=== PATIENT | female | born 1960 | race Caucasian/White ===

== ENCOUNTER → 2019-12-13 10:49 | Outpatient (BNVA) | payer MEDICARE, MEDICAID, SELFPAY | PROVIDERS: Family Provider Family Medicine; Visit Provider Nurse Practitioner Psychiatric/Mental Health | DX: F33.3 Major depressive disorder, recurrent, severe with psychotic symptoms (principal); F41.1 Generalized anxiety disorder; F17.210 Nicotine dependence, cigarettes, uncomplicated | CPT/HCPCS: 99213 ==

== ENCOUNTER → 2020-04-09 07:41 | Outpatient (BNVA) | payer MEDICARE, MEDICAID, SELFPAY | PROVIDERS: Family Provider Family Medicine; Visit Provider Nurse Practitioner Psychiatric/Mental Health | DX: F33.3 Major depressive disorder, recurrent, severe with psychotic symptoms (principal); F41.1 Generalized anxiety disorder; F17.210 Nicotine dependence, cigarettes, uncomplicated | CPT/HCPCS: 99213 ==

== ENCOUNTER 2020-07-07 12:22 | Outpatient (RCR) | payer MEDICARE, MEDICAID, SELFPAY | END 2020-07-08 23:59 | disposition home or self-care (01) | LOC: SPT 12:22 | PROVIDERS: PCP Family Medicine; Referring Provider Internal Medicine; Visit Provider Internal Medicine | DX: M06.9 Rheumatoid arthritis, unspecified (principal); Z79.899 Other long term (current) drug therapy; M17.0 Bilateral primary osteoarthritis of knee | CPT/HCPCS: 97162 ==

== ENCOUNTER → 2020-08-11 07:50 | Outpatient (BNVA) | payer MEDICARE, MEDICAID, SELFPAY | PROVIDERS: PCP Family Medicine; Visit Provider Nurse Practitioner Psychiatric/Mental Health | DX: F33.3 Major depressive disorder, recurrent, severe with psychotic symptoms (principal); F41.1 Generalized anxiety disorder | CPT/HCPCS: 99213 ==

== ENCOUNTER → 2020-10-12 13:50 | Outpatient (BNVA) | payer MEDICARE, MEDICAID, SELFPAY | PROVIDERS: PCP Family Medicine; Visit Provider Internal Medicine | DX: M05.9 Rheumatoid arthritis with rheumatoid factor, unspecified (principal); M17.10 Unilateral primary osteoarthritis, unspecified knee; F17.210 Nicotine dependence, cigarettes, uncomplicated | CPT/HCPCS: 99203; 99204 ==

== ENCOUNTER → 2020-10-26 15:08 | Outpatient (BNVA) | payer MEDICARE, MEDICAID, SELFPAY | PROVIDERS: PCP Family Medicine; Visit Provider Internal Medicine | DX: M05.9 Rheumatoid arthritis with rheumatoid factor, unspecified (principal); M17.0 Bilateral primary osteoarthritis of knee; F17.210 Nicotine dependence, cigarettes, uncomplicated | CPT/HCPCS: 20610; 99214 ==

== ENCOUNTER → 2020-11-30 10:50 | Outpatient (BNVA) | payer MEDICARE, MEDICAID, SELFPAY | PROVIDERS: PCP Family Medicine; Visit Provider Internal Medicine | DX: Z79.899 Other long term (current) drug therapy (principal) | CPT/HCPCS: 36415 ==

== ENCOUNTER → 2020-12-10 08:37 | Outpatient (BNVA) | payer MEDICARE, MEDICAID, SELFPAY | PROVIDERS: PCP Family Medicine; Visit Provider Internal Medicine | DX: M05.9 Rheumatoid arthritis with rheumatoid factor, unspecified (principal); Z79.899 Other long term (current) drug therapy; M17.10 Unilateral primary osteoarthritis, unspecified knee; F17.210 Nicotine dependence, cigarettes, uncomplicated | CPT/HCPCS: 36415; 80053; 85025; 85651; 86140; 99214 ==

== ENCOUNTER → 2020-12-11 07:53 | Outpatient (BNVA) | payer MEDICARE, MEDICAID, SELFPAY | PROVIDERS: PCP Family Medicine; Visit Provider Nurse Practitioner Psychiatric/Mental Health | DX: F33.3 Major depressive disorder, recurrent, severe with psychotic symptoms (principal); F41.1 Generalized anxiety disorder | CPT/HCPCS: 99213 ==

== ENCOUNTER → 2021-03-09 12:47 | Outpatient (BNVA) | payer MEDICARE, MEDICAID, SELFPAY | PROVIDERS: PCP Family Medicine; Visit Provider Internal Medicine | DX: M05.9 Rheumatoid arthritis with rheumatoid factor, unspecified (principal); Z79.899 Other long term (current) drug therapy; F17.210 Nicotine dependence, cigarettes, uncomplicated | CPT/HCPCS: 36415; 80053; 85025; 85651; 86140; 99213; 99214 ==

== ENCOUNTER → 2021-04-08 07:17 | Outpatient (BNVA) | payer MEDICARE, MEDICAID, SELFPAY | PROVIDERS: PCP Family Medicine; Visit Provider Nurse Practitioner Psychiatric/Mental Health | DX: F33.3 Major depressive disorder, recurrent, severe with psychotic symptoms (principal); F41.1 Generalized anxiety disorder | CPT/HCPCS: 99214 ==

== ENCOUNTER → 2021-06-01 10:09 | Outpatient (BNVA) | payer MEDICARE, MEDICAID, SELFPAY | PROVIDERS: PCP Family Medicine; Visit Provider Internal Medicine | DX: M05.9 Rheumatoid arthritis with rheumatoid factor, unspecified (principal); M17.10 Unilateral primary osteoarthritis, unspecified knee; Z79.899 Other long term (current) drug therapy | CPT/HCPCS: 36415; 80053; 85025; 85651; 86140 ==

== ENCOUNTER → 2021-06-15 09:02 | Outpatient (BNVA) | payer MEDICARE, MEDICAID, SELFPAY | PROVIDERS: PCP Family Medicine; Visit Provider Internal Medicine | DX: M05.9 Rheumatoid arthritis with rheumatoid factor, unspecified (principal); Z79.899 Other long term (current) drug therapy; F17.200 Nicotine dependence, unspecified, uncomplicated | CPT/HCPCS: 99213; 99214 ==

== ENCOUNTER → 2021-08-03 09:46 | Outpatient (BNVA) | payer MEDICARE, MEDICAID, SELFPAY | PROVIDERS: PCP Family Medicine; Visit Provider Internal Medicine | DX: Z79.899 Other long term (current) drug therapy (principal); M05.9 Rheumatoid arthritis with rheumatoid factor, unspecified | CPT/HCPCS: 36415; 80053 ==

== ENCOUNTER → 2021-08-04 16:50 | Outpatient (BNVA) | payer MEDICARE, MEDICAID, SELFPAY | PROVIDERS: PCP Family Medicine; Visit Provider Internal Medicine | DX: Z79.899 Other long term (current) drug therapy (principal) | CPT/HCPCS: 80053 ==

== ENCOUNTER → 2021-08-05 07:53 | Outpatient (BNVA) | payer MEDICARE, MEDICAID, SELFPAY | PROVIDERS: PCP Family Medicine; Visit Provider Nurse Practitioner Psychiatric/Mental Health | DX: F33.3 Major depressive disorder, recurrent, severe with psychotic symptoms (principal); F41.1 Generalized anxiety disorder; Z79.899 Other long term (current) drug therapy | CPT/HCPCS: 99214 ==

== ENCOUNTER → 2021-08-06 09:15 | Outpatient (BNVA) | payer MEDICARE, MEDICAID, SELFPAY | PROVIDERS: PCP Family Medicine; Visit Provider Nurse Practitioner Psychiatric/Mental Health | DX: Z79.899 Other long term (current) drug therapy (principal) | CPT/HCPCS: 80061; 83036 ==

== ENCOUNTER 2021-09-06 13:45 | Outpatient (CLI) | payer MEDICARE, MEDICAID, SELFPAY ==
--- NOTE | 2021-09-06 13:50 | MM_ITS ---
WS: [id number] BILATERAL DIGITAL SCREENING MAMMOGRAPHY WITH CAD CLINICAL INFORMATION: SCREENING HISTORY: Screening mammogram. No current complaints. COMPARISON: TECHNIQUE: Bilateral CC and MLO views. FINDINGS: Scattered fibroglandular densities bilaterally. No suspicious focal mass, asymmetry, calcifications, or architectural distortion. No evidence of malignancy. MM/[place] [id number] IMPRESSION: BI-RADS: 1-Negative FOLLOW UP: 1 Year Follow-up Recommend return to annual screening mammography.
== END 2021-09-06 13:46 | disposition home or self-care (01) ==
LOC: RADSHAW 13:47
PROVIDERS: PCP Family Medicine; Visit Provider Family Medicine
DX: Z12.31 Encounter for screening mammogram for malignant neoplasm of breast (principal)
CPT/HCPCS: 77067

== ENCOUNTER → 2021-09-13 09:02 | Outpatient (BNVA) | payer MEDICARE, MEDICAID, SELFPAY | PROVIDERS: PCP Family Medicine; Visit Provider Internal Medicine | DX: M05.9 Rheumatoid arthritis with rheumatoid factor, unspecified (principal); M17.11 Unilateral primary osteoarthritis, right knee; M25.572 Pain in left ankle and joints of left foot; Z79.899 Other long term (current) drug therapy; Z87.891 Personal history of nicotine dependence; M25.50 Pain in unspecified joint | CPT/HCPCS: 73600; 73620; 99214 ==

== ENCOUNTER 2021-09-13 10:16 | Outpatient (CLI) | payer MEDICARE, MEDICAID, SELFPAY ==
--- NOTE | 2021-09-13 10:27 | XR_ITS ---
WS: [id number] ANKLE LEFT TECHNIQUE: 2 views of the left ankle CLINICAL INFORMATION: Z79.899 - Other longterm (current) drug therapy COMPARISON: None. FINDINGS: Osteopenia. Moderate soft tissue edema about the left ankle. Normal medial and lateral malleolus. Nor mal talar dome. No acute fractures. XR/XR ankle LT 2V [id number] IMPRESSION: Moderate diffuse soft tissue edema. No visualized fractures.
--- NOTE | 2021-09-13 10:27 | XR_ITS ---
WS: [email or web address] FOOT LEFT TECHNIQUE: 2 views of the left foot CLINICAL INFORMATION: M25.50 - Pain in unspecified joint COMPARISON: None. FINDINGS: Osteopenia. Mild hallux valgus. Degenerative narrowing at the first MTP. Mild bunion deformity. Katie l metatarsals. No acute fractures. Hypertrophic spurring along the distal talus. Soft tissue edema dorsal ankle. XR/XR foot LT 2V [id number] IMPRESSION: Osteopenia. No acute fractures.
== END 2021-09-13 10:17 | disposition home or self-care (01) ==
PROVIDERS: PCP Family Medicine; Visit Provider Internal Medicine
DX: Z79.899 Other long term (current) drug therapy (principal); M25.50 Pain in unspecified joint
CPT/HCPCS: 73600; 73620

== ENCOUNTER 2021-11-18 11:04 | Outpatient (CLI) | payer MEDICARE, MEDICAID, SELFPAY ==
[2021-11-18 11:57] LABS: Basophils % 0.3 %; Eosinophils # 0.1 10^3/uL (0.0-0.8); Eosinophils % 0.8 %; Hematocrit 40.9 % (37.0-47.0); Hemoglobin 12.7 g/dL (11.5-15.3); Lymphocytes % 8.3 %; Mean Corpuscular HGB Conc 31.1 g/dL (30.0-36.0); Mean Corpuscular Volume 96.5 fl (81-99); Mean Platelet Volume 9.2 fL (7.4-10.4); Monocytes # 0.5 10^3/uL (0.2-0.9); Monocytes % 3.9 %; Neutrophils # 10.14 10^3/uL (1.8-7.7); Neutrophils % 86.1 %; Nucleated Red Blood Cells % 0 %; Platelet Count 303 10^3/cmm (130-400); Red Blood Count 4.24 10^6/uL (4.1-5.3); Red Cell Distribution Width 15.1 % (12.1-15.1); White Blood Count 11.8 10^3/uL (4.0-10.0)
[2021-11-18 12:04] LABS: Erythrocyte Sedimentation Rate 112 mm/hr (0-15)
[2021-11-18 12:18] LABS: Alanine Aminotransferase 10 U/L (0-33); Albumin Level 3.5 g/dL (3.5-5.2); Alkaline Phosphatase 101 IU/L (35-105); Anion Gap 16.7 (5-19); Aspartate Amino Transferase 14 U/L (0-32); Blood Urea Nitrogen 10 mg/dL (6-20); C Reactive Protein 204.3 mg/L (0.0-4.9); Calcium 9.9 mg/dL (8.5-10.5); Carbon Dioxide 22 mmol/L (22-29); Chloride 101 mmol/L (98-107); Globulin 4.3 g/dL (1.3-4.6); Glomerular Filtration Rate 126.7 mL/min (90-130); Glucose 148 mg/dL (65-115); Osmolality Calculated 284 mOsm/kg (285-295); Potassium 3.7 mmol/L (3.5-5.1); Sodium 136 mmol/L (136-145); Total Bilirubin 0.4 mg/dL (0.15-1.2); Total Protein 7.8 g/dL (6.6-8.7)
== END 2021-11-18 11:05 | disposition home or self-care (01) ==
PROVIDERS: PCP Family Medicine; Visit Provider Internal Medicine
DX: M05.9 Rheumatoid arthritis with rheumatoid factor, unspecified (principal); Z79.899 Other long term (current) drug therapy
CPT/HCPCS: 80053; 85025; 85651; 86140

== ENCOUNTER → 2021-11-25 07:16 | Outpatient (BNVA) | payer MEDICARE, MEDICAID, SELFPAY | PROVIDERS: PCP Family Medicine; Visit Provider Nurse Practitioner Psychiatric/Mental Health | DX: F33.3 Major depressive disorder, recurrent, severe with psychotic symptoms (principal); F41.1 Generalized anxiety disorder; Z79.899 Other long term (current) drug therapy | CPT/HCPCS: 99214 ==

== ENCOUNTER 2021-12-14 15:00 | Outpatient (CLI) | payer MEDICARE, MEDICAID, SELFPAY | END 2021-12-14 15:01 | disposition home or self-care (01) | LOC: SPT 12-15 09:01 | PROVIDERS: PCP Family Medicine; Visit Provider Podiatrist Foot & Ankle Surgery | DX: Z46.89 Encounter for fitting and adjustment of other specified devices (principal); M79.673 Pain in unspecified foot; M19.079 Primary osteoarthritis, unspecified ankle and foot; M20.20 Hallux rigidus, unspecified foot; M21.41 Flat foot [pes planus] (acquired), right foot; M21.42 Flat foot [pes planus] (acquired), left foot | CPT/HCPCS: 97760; L3030 ==

== ENCOUNTER → 2021-12-28 10:07 | Outpatient (BNVA) | payer MEDICARE, MEDICAID, SELFPAY | PROVIDERS: PCP Family Medicine; Visit Provider Internal Medicine | DX: M05.9 Rheumatoid arthritis with rheumatoid factor, unspecified (principal); Z79.899 Other long term (current) drug therapy; R79.82 Elevated C-reactive protein (CRP); Z87.891 Personal history of nicotine dependence | CPT/HCPCS: 99214 ==

== ENCOUNTER → 2022-01-31 11:06 | Outpatient (BNVA) | payer MEDICARE, MEDICAID, SELFPAY | PROVIDERS: PCP Family Medicine; Visit Provider Nurse Practitioner Psychiatric/Mental Health | DX: F33.3 Major depressive disorder, recurrent, severe with psychotic symptoms (principal); F41.1 Generalized anxiety disorder; Z79.899 Other long term (current) drug therapy | CPT/HCPCS: 99214 ==

== ENCOUNTER → 2022-02-07 09:59 | Outpatient (BNVA) | payer MEDICARE, MEDICAID, SELFPAY | PROVIDERS: PCP Family Medicine; Visit Provider Podiatrist Foot & Ankle Surgery | DX: M19.079 Primary osteoarthritis, unspecified ankle and foot (principal); M21.41 Flat foot [pes planus] (acquired), right foot; M21.42 Flat foot [pes planus] (acquired), left foot; M20.20 Hallux rigidus, unspecified foot; Z87.891 Personal history of nicotine dependence | CPT/HCPCS: 99213; 99214 ==

== ENCOUNTER 2022-02-28 11:41 | Outpatient (CLI) | payer MEDICARE, MEDICAID, SELFPAY ==
[2022-02-28 12:37] LABS: Basophils # 0.1 10^3/uL (0.0-0.1); Basophils % 0.8 %; Eosinophils # 0.2 10^3/uL (0.0-0.8); Eosinophils % 2.9 %; Hemoglobin 12.8 g/dL (11.5-15.3); Lymphocytes # 1.2 10^3/uL (0.8-4.8); Lymphocytes % 19.7 %; Mean Corpuscular HGB Conc 30.5 g/dL (30.0-36.0); Mean Corpuscular Hemoglobin 29.2 pg (28.0-34.0); Mean Corpuscular Volume 95.7 fl (81-99); Monocytes # 0.4 10^3/uL (0.2-0.9); Monocytes % 6.4 %; Neutrophils % 69.9 %; Nucleated Red Blood Cells % 0 %; Platelet Count 372 10^3/cmm (130-400); Red Blood Count 4.39 10^6/uL (4.1-5.3); Red Cell Distribution Width 15.8 % (12.1-15.1); White Blood Count 6.3 10^3/uL (4.0-10.0)
[2022-02-28 12:40] LABS: Erythrocyte Sedimentation Rate 81 mm/hr (0-15)
[2022-02-28 13:09] LABS: Alanine Aminotransferase 21 U/L (0-33); Albumin Level 3.8 g/dL (3.5-5.2); Alkaline Phosphatase 102 IU/L (35-105); Anion Gap 16.8 (5-19); Aspartate Amino Transferase 25 U/L (0-32); Blood Urea Nitrogen 5 mg/dL (6-20); C Reactive Protein 10.3 mg/L (0.0-4.9); Calcium 9.5 mg/dL (8.5-10.5); Carbon Dioxide 25 mmol/L (22-29); Chloride 103 mmol/L (98-107); Glomerular Filtration Rate 102.3 mL/min (90-130); Glucose 182 mg/dL (65-115); Osmolality Calculated 294 mOsm/kg (285-295); Potassium 3.8 mmol/L (3.5-5.1); Sodium 141 mmol/L (136-145); Total Bilirubin 0.2 mg/dL (0.15-1.2); Total Protein 6.8 g/dL (6.6-8.7)
== END 2022-02-28 11:42 | disposition home or self-care (01) ==
LOC: LAB 11:44
PROVIDERS: PCP Family Medicine; Visit Provider Internal Medicine
DX: M05.9 Rheumatoid arthritis with rheumatoid factor, unspecified (principal); Z79.899 Other long term (current) drug therapy; M17.0 Bilateral primary osteoarthritis of knee
CPT/HCPCS: 80053; 85025; 85651; 86140

== ENCOUNTER → 2022-04-01 10:04 | Outpatient (BNVA) | payer MEDICARE, MEDICAID, SELFPAY | PROVIDERS: PCP Family Medicine; Visit Provider Internal Medicine | DX: M05.9 Rheumatoid arthritis with rheumatoid factor, unspecified (principal); R79.82 Elevated C-reactive protein (CRP); Z79.899 Other long term (current) drug therapy | CPT/HCPCS: 73502; 99214 ==

== ENCOUNTER → 2022-04-18 12:04 | Outpatient (BNVA) | payer MEDICARE, MEDICAID, SELFPAY | PROVIDERS: PCP Family Medicine; Referring Provider Internal Medicine; Visit Provider Nurse Practitioner | DX: R25.1 Tremor, unspecified (principal) | CPT/HCPCS: 84443; 99203 ==

== ENCOUNTER 2022-06-09 14:12 | Outpatient (CLI) | payer MEDICARE, MEDICAID, SELFPAY ==
[2022-06-09 14:45] LABS: Basophils # 0.1 10^3/uL (0.0-0.1); Basophils % 1.1 %; Eosinophils # 0.2 10^3/uL (0.0-0.8); Eosinophils % 4.1 %; Hematocrit 44.7 % (37.0-47.0); Hemoglobin 13.4 g/dL (11.5-15.3); Lymphocytes # 1.6 10^3/uL (0.8-4.8); Lymphocytes % 30.4 %; Mean Corpuscular Hemoglobin 29.4 pg (28.0-34.0); Mean Platelet Volume 9.3 fL (7.4-10.4); Monocytes # 0.4 10^3/uL (0.2-0.9); Monocytes % 7.5 %; Neutrophils # 3.02 10^3/uL (1.8-7.7); Neutrophils % 56.7 %; Nucleated Red Blood Cells % 0 %; Platelet Count 364 10^3/cmm (130-400); Red Blood Count 4.56 10^6/uL (4.1-5.3); Red Cell Distribution Width 14.8 % (12.1-15.1); White Blood Count 5.3 10^3/uL (4.0-10.0)
[2022-06-09 14:47] LABS: Erythrocyte Sedimentation Rate 67 mm/hr (0-15)
[2022-06-09 15:00] LABS: Alanine Aminotransferase 18 U/L (0-33); Albumin Level 3.6 g/dL (3.5-5.2); Alkaline Phosphatase 92 U/L (35-105); Anion Gap 16.7 (5-19); Aspartate Amino Transferase 20 U/L (0-32); Blood Urea Nitrogen 7 mg/dL (6-20); C Reactive Protein 4.3 mg/L (0.0-4.9); Calcium 9.1 mg/dL (8.5-10.5); Carbon Dioxide 26 mmol/L (22-29); Chloride 99 mmol/L (98-107); Creatine Phosphokinase 50 U/L (26-192); Globulin 3.2 g/dL (1.3-4.6); Glomerular Filtration Rate 73.4 mL/min (90-130); Glucose 199 mg/dL (65-115); Osmolality Calculated 290 mOsm/kg (285-295); Potassium 3.7 mmol/L (3.5-5.1); Sodium 138 mmol/L (136-145); Total Bilirubin 0.2 mg/dL (0.15-1.2); Total Protein 6.8 g/dL (6.6-8.7)
== END 2022-06-09 14:13 | disposition home or self-care (01) ==
PROVIDERS: PCP Family Medicine; Visit Provider Internal Medicine
DX: M05.9 Rheumatoid arthritis with rheumatoid factor, unspecified (principal); M17.10 Unilateral primary osteoarthritis, unspecified knee; R79.82 Elevated C-reactive protein (CRP); Z79.899 Other long term (current) drug therapy
CPT/HCPCS: 80053; 82550; 85025; 85651; 86140

== ENCOUNTER → 2022-06-28 14:01 | Outpatient (BNVA) | payer MEDICARE, MEDICAID, SELFPAY | PROVIDERS: PCP Family Medicine; Visit Provider Internal Medicine | DX: M05.9 Rheumatoid arthritis with rheumatoid factor, unspecified (principal); Z71.85 Encounter for immunization safety counseling; Z79.899 Other long term (current) drug therapy | CPT/HCPCS: 99214 ==

== ENCOUNTER → 2022-11-03 15:09 | Outpatient (BNVA) | payer MEDICARE, MEDICAID, SELFPAY | PROVIDERS: PCP Family Medicine; Visit Provider Internal Medicine | DX: M05.9 Rheumatoid arthritis with rheumatoid factor, unspecified (principal); Z79.899 Other long term (current) drug therapy | CPT/HCPCS: 36415; 80053; 82550; 85025; 85651; 86140; 99214 ==

== ENCOUNTER 2022-11-14 12:28 | Outpatient (CLI) | payer MEDICARE, MEDICAID, SELFPAY ==
--- NOTE | 2022-11-14 13:13 | MM_ITS ---
WS: [id number] BILATERAL 3D TOMOSYNTHESIS DIGITAL SCREENING MAMMOGRAM WITH CAD CLINICAL INFORMATION: SCREENING HISTORY: Screening mammogram. No current complaints. COMPARISON: 2020 TECHNIQUE: Bilateral CC and MLO views. FINDINGS: Fatty-replaced breasts bilaterally. No suspicious focal mass, asymmetry, calcifications, or oracle database architect ural distortion. No evidence of malignancy. MM/[place] [id number] IMPRESSION: BI-RADS: 1-Negative FOLLOW UP: 1 Year Follow-up Recommend return to annual screening mammography.
== END 2022-11-14 12:29 | disposition home or self-care (01) ==
LOC: RAD 12:30
PROVIDERS: PCP Family Medicine; Visit Provider Family Medicine
DX: Z12.31 Encounter for screening mammogram for malignant neoplasm of breast (principal)
CPT/HCPCS: 77063; 77067

== ENCOUNTER 2023-01-03 07:16 | Outpatient (CLI) | payer MEDICARE, MEDICAID, SELFPAY ==
[2023-01-03 07:47] LABS: Basophils # 0.1 10^3/uL (0.0-0.1); Basophils % 0.8 %; Eosinophils # 0.3 10^3/uL (0.0-0.8); Eosinophils % 4.6 %; Hematocrit 44.6 % (37.0-47.0); Hemoglobin 13.9 g/dL (11.5-15.3); Lymphocytes # 1.6 10^3/uL (0.8-4.8); Lymphocytes % 24.8 %; Mean Corpuscular HGB Conc 31.2 g/dL (30.0-36.0); Mean Corpuscular Hemoglobin 30.5 pg (28.0-34.0); Mean Platelet Volume 9.5 fL (7.4-10.4); Monocytes # 0.6 10^3/uL (0.2-0.9); Monocytes % 9.6 %; Neutrophils # 3.75 10^3/uL (1.8-7.7); Nucleated Red Blood Cells % 0 %; Platelet Count 312 10^3/cmm (130-400); Red Blood Count 4.55 10^6/uL (4.1-5.3); Red Cell Distribution Width 14.1 % (12.1-15.1); White Blood Count 6.3 10^3/uL (4.0-10.0)
[2023-01-03 08:08] LABS: Alanine Aminotransferase 18 U/L (0-33); Alkaline Phosphatase 93 U/L (35-105); Anion Gap 14.4 (5-19); Aspartate Amino Transferase 25 U/L (0-32); Blood Urea Nitrogen 6 mg/dL (8-23); C Reactive Protein 6.3 mg/L (0.0-4.9); Calcium 8.8 mg/dL (8.5-10.5); Carbon Dioxide 27 mmol/L (22-29); Chloride 103 mmol/L (98-107); Globulin 3.1 g/dL (1.3-4.6); Glucose 111 mg/dL (65-115); Osmolality Calculated 288 mOsm/kg (285-295); Potassium 4.4 mmol/L (3.5-5.1); Sodium 140 mmol/L (136-145); Total Bilirubin 0.3 mg/dL (0.15-1.2); Total Protein 7.1 g/dL (6.6-8.7)
[2023-01-03 08:27] LABS: Erythrocyte Sedimentation Rate 65 mm/hr (0-15)
== END 2023-01-03 07:17 | disposition home or self-care (01) ==
PROVIDERS: PCP Family Medicine; Visit Provider Internal Medicine
DX: M05.9 Rheumatoid arthritis with rheumatoid factor, unspecified (principal); Z79.899 Other long term (current) drug therapy
CPT/HCPCS: 36415; 80053; 85025; 85651; 86140

== ENCOUNTER → 2023-01-17 14:44 | Outpatient (BNVA) | payer MEDICARE, MEDICAID, SELFPAY | PROVIDERS: PCP Family Medicine; Visit Provider Internal Medicine | DX: M05.9 Rheumatoid arthritis with rheumatoid factor, unspecified (principal); Z79.899 Other long term (current) drug therapy | CPT/HCPCS: 99214 ==

== ENCOUNTER → 2023-02-21 07:58 | Outpatient (BNVA) | payer MEDICARE, MEDICAID, SELFPAY | PROVIDERS: PCP Family Medicine; Visit Provider Podiatrist Foot & Ankle Surgery | DX: M19.079 Primary osteoarthritis, unspecified ankle and foot (principal); M21.41 Flat foot [pes planus] (acquired), right foot; M21.42 Flat foot [pes planus] (acquired), left foot; M20.20 Hallux rigidus, unspecified foot; M05.9 Rheumatoid arthritis with rheumatoid factor, unspecified | CPT/HCPCS: 99213 ==

== ENCOUNTER → 2023-04-14 11:25 | Outpatient (BNVA) | payer MEDICARE, MEDICAID, OTHER, SELFPAY | PROVIDERS: PCP Family Medicine; Visit Provider Nurse Practitioner Psychiatric/Mental Health | DX: Z79.899 Other long term (current) drug therapy (principal) | CPT/HCPCS: 80061; 83036 ==

== ENCOUNTER → 2023-04-25 09:25 | Outpatient (BNVA) | payer MEDICARE, MEDICAID, SELFPAY | PROVIDERS: PCP Family Medicine; Visit Provider Specialist | DX: G25.0 Essential tremor (principal); F33.3 Major depressive disorder, recurrent, severe with psychotic symptoms; F41.1 Generalized anxiety disorder | CPT/HCPCS: 99214 ==

== ENCOUNTER → 2023-05-25 13:08 | Outpatient (BNVA) | payer MEDICARE, MEDICAID, SELFPAY | PROVIDERS: PCP Family Medicine; Visit Provider Internal Medicine | DX: R79.82 Elevated C-reactive protein (CRP) (principal); Z79.899 Other long term (current) drug therapy; M05.9 Rheumatoid arthritis with rheumatoid factor, unspecified | CPT/HCPCS: 36415; 80053; 85025; 85651; 86140; 99214 ==

== ENCOUNTER → 2023-08-14 10:27 | Outpatient (BNVA) | payer MEDICARE, MEDICAID, OTHER, SELFPAY | PROVIDERS: PCP Family Medicine; Referring Provider Specialist; Visit Provider Specialist | DX: G25.0 Essential tremor (principal) | CPT/HCPCS: 99213 ==

== ENCOUNTER → 2023-08-22 14:38 | Outpatient (BNVA) | payer MEDICARE, MEDICAID, OTHER, SELFPAY | PROVIDERS: PCP Family Medicine; Visit Provider Internal Medicine | DX: M05.9 Rheumatoid arthritis with rheumatoid factor, unspecified (principal); Z79.899 Other long term (current) drug therapy | CPT/HCPCS: 99214 ==

== ENCOUNTER 2023-12-05 08:55 | Outpatient (CLI) | payer MEDICARE, MEDICAID, SELFPAY ==
--- NOTE | 2023-12-05 09:02 | MM_ITS ---
WS: [id number] VIEWS: MLO and CC views both breasts. 3D digital tomosynthesis is also included in this exam. Comparison made with prior exam of 02/13/2012, 07/10/2017, 09/03/2019, 09/06/2021, 11/14/2022,. Findings: There was no sign of mass, architectural distortion or suspicious calcification in either breast. The breasts are almost entirely fatty. Impression: MM/[place] [id number] BI-RADS: 1-Negative FOLLOW-UP: 1 Year Follow-up This mammogram was also analyzed by the Computer Aided Detection System R2 Imag e Procurement Services Manager.
== END 2023-12-05 08:56 | disposition home or self-care (01) ==
LOC: RAD 08:55
PROVIDERS: PCP Family Medicine; Visit Provider Family Medicine
DX: Z12.31 Encounter for screening mammogram for malignant neoplasm of breast (principal)
CPT/HCPCS: 77063; 77067

== ENCOUNTER 2023-12-26 10:58 | Outpatient (CLI) | payer MEDICARE, MEDICAID, OTHER, SELFPAY ==
--- NOTE | 2023-12-26 13:27 | OP.DCCON ---
Reason for Visit: 97349 E11.9 Person Interviewed: Patient Medical History, Labs and Background: Stefanie mentioned her A1c was high and that she has issues with HTN, depression and too many meds. She blamed her weight gain on her meds, in a pleasant way. Height: 5 ft 4 in Weight: 286 lb BMI: 49.2 kg/m2 Weight History: At one time Stefanie weighed 150lbs. In 2016 her weight went up to 200lbs, then because of stress and meds, it is now at 286lbs. Concerns and Goals: Stefanie would like her HbA1c to be WNL and she would like to lose weight. Sleep Hygiene: Sleep is her favorite thing to do . Stefanie said she can sleep up to 20 hours/day, but she can have a difficult time falling asleep and when she does, she wakes up throughout the night. Physical Activity: Exercises makes Stefanie SOB and hurts her hip. GI Symptoms: Constipation and Diarrhea Feeding Issues: Difficulty Swallowing Food Allergies and Sensitivities: When drinking milk, Stefanie has some issues. Meds, Supplements & Other: She was taking 10,000mg Biotin, but stopped because it gave her a rash. 24 Hour Recall: Breakfast Time: noon 16 ounce Mountain Dew Snack Time: Lunch Time: 4pm Chicken and MP from [employer], Sweet Tea from [employer] Snack Time: Dinner Time: 6:30pm leftover chicken from [employer], [employer] Dew Snack Time: ? 4 Azeri Butter cookies and Mountain Dew Eating Out: Stefanie thinks she eats out 4-5x/week Soda vs Milk vs Water: She likes to drink Mountain Dew:[id number] bottles/day, sweet tea, and Coca Cola Additional Comments: When asked when she gets up in the morning, Stefanie said she gets up only if she must. Though she sleeps up to 20 hours/day she feels kaput or fatigued all day long. When asked who was encouraging to her or a source of support, she said her Mom somewhat and maybe her brothers, but that she lives alone. Because it is just her, she does the shopping and cooking although she doesn't like to cook and hence all of the fast food/ eating out. Recommendations: Assessment: It was difficult to gauge Stefanie's motivation, although she was pleasant to talk to and was honest in answering questions about her current habits. Nutrition diagnosis: Excessive energy intake r/t habits and patterns AEB BMI of 49.7 kg/m2. Intervention: We talked about her soda intake and how it was empty calories, probably suppressing her appetite because of the high caffeine content and that it may contribute to her being unable to sleep, (among other things). Rather then a Mountain Dew, I suggested a high protein/ low carb drink to start her day as she had tried Ensure before and liked them. We then talked about trying to eat more frequently and to include protein and fat with her carbs for her meals and snacks. Using the Diabetic MyPlate we discussed how to balance carbs and protein and fats, beginning with what are examples of each of them. Since she is the one shopping and possibly cooking, I mentioned that she could set up an atmosphere in her home that would provide healthier choices. We also discussed very moderate exercise like chair exercises or walking in place since she is unable to walk far. I challenged her to consider having just 1 soda/day that she could sip on throughout the day when she needed a soda fix and the rest of the time drink water. The 5 days of meal plans were interesting for her and she thought she could try some of them. The last thing we talked about was who was her support system and though she mentioned her mom and brothers, none seemed like a sure thing and she was reluctant to reach out to them. Monitoring and evaluation: At the bottom of the take home sheet is my office number/ extension and email for f/u questions. Stefanie said she thought she would be calling and I hope she does. Coding Level of Care Code Nutrition/Individ/Init 60 min Time Spent (min) 60
== END 2023-12-26 10:59 | disposition home or self-care (01) ==
LOC: DIET 10:59
PROVIDERS: PCP Family Medicine; Visit Provider Family Medicine
DX: E11.9 Type 2 diabetes mellitus without complications (principal); Z68.42 Body mass index [BMI] 45.0-49.9, adult
CPT/HCPCS: 97802

== ENCOUNTER → 2024-02-15 09:26 | Outpatient (BNVA) | payer MEDICARE, MEDICAID, OTHER, SELFPAY | PROVIDERS: PCP Family Medicine; Visit Provider Podiatrist Foot & Ankle Surgery | DX: M19.071 Primary osteoarthritis, right ankle and foot (principal); M19.072 Primary osteoarthritis, left ankle and foot; M21.41 Flat foot [pes planus] (acquired), right foot; M21.42 Flat foot [pes planus] (acquired), left foot; M20.21 Hallux rigidus, right foot; M20.22 Hallux rigidus, left foot | CPT/HCPCS: 99213 ==

== ENCOUNTER → 2024-04-04 08:51 | Outpatient (BNVA) | payer MEDICARE, MEDICAID, SELFPAY | PROVIDERS: PCP Family Medicine; Visit Provider Internal Medicine Rheumatology | DX: M05.9 Rheumatoid arthritis with rheumatoid factor, unspecified (principal); Z79.899 Other long term (current) drug therapy; R68.2 Dry mouth, unspecified; Z71.85 Encounter for immunization safety counseling; E11.8 Type 2 diabetes mellitus with unspecified complications | CPT/HCPCS: 36415; 80061; 80076; 82310; 82565; 83036; 83735; 84100; 84132; 85025; 85651; 86140; 86235; 86480; 86704; 86803; 87340; 99214 ==

== ENCOUNTER → 2024-08-29 10:30 | Outpatient (BNVA) | payer MEDICARE, MEDICAID, SELFPAY | PROVIDERS: PCP Family Medicine; Visit Provider Specialist | DX: R29.90 Unspecified symptoms and signs involving the nervous system (principal); G25.0 Essential tremor; R03.0 Elevated blood-pressure reading, without diagnosis of hypertension; F41.9 Anxiety disorder, unspecified; I10 Essential (primary) hypertension; R07.9 Chest pain, unspecified; H53.9 Unspecified visual disturbance | CPT/HCPCS: 99214 ==

== ENCOUNTER → 2024-09-03 10:15 | Outpatient (BNVA) | payer MEDICARE, MEDICAID, SELFPAY | PROVIDERS: PCP Family Medicine; Visit Provider Internal Medicine Rheumatology | DX: M05.9 Rheumatoid arthritis with rheumatoid factor, unspecified (principal); Z79.899 Other long term (current) drug therapy; R68.2 Dry mouth, unspecified; Z71.85 Encounter for immunization safety counseling | CPT/HCPCS: 36415; 80076; 82565; 85025; 85651; 86140; 99214 ==

== ENCOUNTER 2024-10-25 07:49 | Inpatient (IN) | payer MEDICARE, MEDICAID, SELFPAY ==
[2024-10-25] VITALS (11 sets, daily range): BP systolic 112–140; BP diastolic 66–101; PULSE 90–121; RESP 15–21; TEMP 36.6–37.2; O2SAT 91–100; BMI 36.7
--- NOTE | 2024-10-25 07:59 | CT_ITS ---
WS: [email or web address] CT HEAD NONCONTRAST HISTORY: ?STROKE TECHNIQUE: Contiguous axial imaging performed through the brain. Bone and soft tissue windows. Sagitt al and coronal reformats reviewed. All CT scans at [facility] use at least one of these dose optimization techniques: automated exposure control; mA and/or kV adjustment per patient size (includ es targeted exams where dose is matched to clinical indication); or iterative reconstruction. DLP: 1113.08 mGy COMPARISON: 02/18/2018 No acute intracranial hemorrhage, midline shift or mass effect. Mild symmetric atrophy has progressed since 2018. Reidentified are small perivascular spaces in the b mg ganglia. Additional small lacunar infarcts in the caudate heads. Mild small vessel ischemic dise ase in the deep and periventricular white matter. Ventricles: Normal size with no hydrocephalus. No inferior displacement of the cerebellar tonsils. Paranasal sinuses: As visualized are clear. Mastoid air cells: Well pneumatized. Calvarium and scalp: Skull is intact with no soft tissue edema or swelling. CT/CT head thrombolytic [id number] IMPRESSION: 1. No acute intracranial hemorrhage or edema. 2. Mild progression of cerebral atrophy and small vessel disease since 2018. 3. No change in the perivascular spaces and the small lacunar infarcts in the caudate heads. Notified George Echevarria MD at 10/25/2024 8:07 AM.
[2024-10-25 08:00] LABS: Glucose Point of Care 126 mg/dL (70-110)
--- NOTE | 2024-10-25 08:03 | XR_ITS ---
WS: [id number] XR chest 1V portable [id number] REASON FOR EXAM: ams FINDINGS: The examination is unchanged compared to a previous study of 02/18/2018. Moderate tortuosity of the thoracic aorta. The heart size is within normal limits. Calcified granulomas disease in both hemithoraces. No acute pulmonary parenchymal or pleural abnormality. Mild degenerative spondylosis of the thoracic spine. XR/XR chest 1V portable [id number] IMPRESSION: No acute chest abnormality.
--- NOTE | 2024-10-25 08:03 | CT_ITS ---
WS: [email or web address] CTA HEAD AND NECK TECHNIQUE: Contrast enhanced CTA of the head and neck with coronal and sagittal reformatted images an d maximum intensity projection (MIP) images. NASCET criteria utilized. CLINICAL INFORMATION: ams COMPARISON: None. DLP: 491.[address] scans at [facility] use at least one of these dose optimization techniques: automated e xposure control; mA and/or kV adjustment per patient size (includes targeted exams where dose is matc hed to clinical indication); or iterative reconstruction. FINDINGS: RIGHT: RIGHT common carotid artery is patent. No significant RIGHT ICA stenosis. RIGHT ICA is patent to the skull base. LEFT: LEFT common carotid artery is patent. No significant LEFT ICA stenosis. LEFT ICA is patent to t he skull base. INTRACRANIAL CTA: Mild cavernous carotid calcification. Both ICAs are patent at the skull base. Normal vascularity to the MARTINA and MCA territories bilaterally. Predominant patent vertebral arteries bilaterally. Proximal basilar artery is patent. Normal vascularity to the TRIMMER AND REINFORCER territory bilaterally. No evidence of proxim al flow-limiting stenosis. Straightening of the normal cervical lordosis. Mild cervical curve. Slight anterolisthesis of C2 on C 3. Mild central canal stenosis disc osteophyte complexes at C5-C6 and C6-C7. CT/CT angio headneck* [id number] IMPRESSION: 1. No significant cervical ICA stenosis. 2. Codominant and patent vertebral arteries bilaterally. 3. Basilar artery is patent. 4. No evidence of flow-limiting intracranial stenosis.
--- NOTE | 2024-10-25 08:04 | ECG_ITS ---
[facility] Test Date: 2024-10-25 Pat Name: Stefanie Meng Department: Room: Gender: Female Wellness Program Coordinator: : 1960 Requested By: George Echevarria Order Number: [id number] Reading MD: BALJINDER RIVERA Measurements Intervals [place] Rate: 96 P: 0 SC: 0 QRS: -76 QRSD: 132 T: 59 QT: 386 QTc: 489 Interpretive Statements Sinus rythm RIGHT BUNDLE BRANCH BLOCK [120+ ms QRS DURATION, UPRIGHT V1, 40+ ms S IN I/aVL/V4/V5/V6] LEFT ANTERIOR FASCICULAR BLOCK [QRS AXIS <= -45, QR IN I, RS IN II] POSSIBLE ANTERIOR MYOCARDIAL INFARCTION , PROBABLY OLD [30 ms Q WAVE IN V3/V4, OR R < 0.2 mV IN V4] Compared to ECG 02/18/2018 13:59:20 Right bundle-branch block now present Myocardial infarct finding now present Electronically Signed On 10-25-2024 23:22:39 ASSEMBLER TYPE BAR AND SEGMENT by BALJINDER RIVERA [email or web address] beck
[2024-10-25 08:10] LABS: Basophils % 0.3 %; Eosinophils % 0.3 %; Hematocrit 40.8 % (36-47); Lymphocytes # 1.3 10^3/uL (0.8-4.8); Lymphocytes % 12.2 %; Mean Corpuscular HGB Conc 32.6 g/dL (30-55); Mean Corpuscular Hemoglobin 30.4 pg (27-33); Mean Corpuscular Volume 93.4 fl (85-98); Mean Platelet Volume 9.5 fL (7.4-10.4); Monocytes # 0.5 10^3/uL (0.2-0.9); Monocytes % 4.2 %; Neutrophils % 82.5 %; Nucleated Red Blood Cells % 0 %; Platelet Count 624 10^3/cmm (157-399); Red Blood Count 4.37 10^6/uL (3.85-5.65); Red Cell Distribution Width 13.1 % (12.1-15.1); White Blood Count 11.01 10^3/uL (3.29-11.43)
[2024-10-25 08:24] LABS: Alanine Aminotransferase 17 U/L (0-33); Albumin Level 3.1 g/dL (3.5-5.2); Alkaline Phosphatase 123 U/L (35-105); Aspartate Amino Transferase 19 U/L (0-32); Blood Urea Nitrogen 4 mg/dL (8-23); Calcium 9.3 mg/dL (8.5-10.5); Carbon Dioxide 28 mmol/L (22-29); Chloride 94 mmol/L (98-107); Creatinine Clr Calc Pharmacy 111.3689; Globulin 3.9 g/dL (1.3-4.6); Glomerular Filtration Rate 101.6 mL/min (90-130); Glucose 133 mg/dL (65-115); Osmolality Calculated 287 mOsm/kg (285-295); Sodium 139 mmol/L (136-145); Total Bilirubin 0.4 mg/dL (0.15-1.2)
[2024-10-25 08:27] LABS: INR 1.01 (0.8-1.2)
[2024-10-25 08:29] LABS: ABG PCO2 41.2 mmHg (35-45); ABG PH Result 7.48 (7.35-7.45); Arterial Blood Gas Hematocrit 43.2 % (37-47); Base Excess ABG 6.5 mmol/L (-2.0-2.0); Blood Gas Allen Test Pos; Blood Gas Operator Identificat CAK; Blood Gas Sample Site Radial, right; Blood Gas Sample Type Arterial; Carboxyhemoglobin 5.6 %THgb (0.4-20.1); HCO3 ABG 30.7 mmol/L (22-26); HGB O2 Sat 90.6 % (95-100); Ionized Calcium Level - ABG 1.2 mmol/L (1.1-1.4); Methemoglobin 0.3 % (0.4-1.5); Oxygen Device ROOM AIR; Oxygen Saturation ABG 96.2; PO2 ABG 74.9 mmHg (80.0-100.0); PO2 FiO2 Ratio Arterial Blood 356; Potassium Level - ABG 2.9 mmol/L (3.5-5.0); Total Hemoglobin 14.1 g/dL (12-16)
[2024-10-25 08:41] LABS: Acetaminophen < 5.0 ug/mL (10-30); Alcohol Level < 10 mg/dL (0-10); Anion Gap 19.9 (5-19); Salicylate < 0.3 mg/dL (3-10)
[2024-10-25] MEDS: iohexol 350 mg/mL 500 mL Btl (per mL) IV (08:41)
[2024-10-25 08:42] LABS: Potassium 2.9 mmol/L (3.5-5.1)
[2024-10-25] MEDS: water for injection-sterile 10 ML (08:44)
[2024-10-25] MEDS: ziprasidone 20 mg/mL SDV 10 MG IM (08:44)
[2024-10-25] MEDS: potassium chloride oral liq 20 mEq/15 mL UDC 40 MEQ PO (09:14)
[2024-10-25 09:25] LABS: Bilirubin Urine Negative (Negative); Blood Urine Negative (Negative); Glucose Urine UA Negative (Normal); Ketones Urine Negative (Negative); Leukocyte Esterase Urine Negative (Negative); Nitrate Urine Negative (Negative); Protein Urine Trace (Negative); Urine Appearance Cloudy (CLEAR); Urine Color Yellow (Yellow)
[2024-10-25 09:27] LABS: Add Urine Microscopic? YES; Bacteria Urine 1+ /hpf; Hyaline Casts Urine 2.05 /lpf; Squamous Epithelial Cell Urine 21-50 /hpf (0-5); WBC Urine 0-5 /hpf (0-5)
[2024-10-25 09:32] LABS: Amphetamines Screen Urine Negative (Negative); Barbiturates Screen Urine Negative (Negative); Benzodiazepines Screen Urine Negative (Negative); Cocaine Screen Urine Negative (Negative); Opiate Screen Urine Negative (Negative); PCP Screen Urine Negative (Negative); THC Screen Urine Negative (Negative)
[2024-10-25 09:42] LABS: Specific Gravity, Urine 1.044 (1.005-1.030); UA Slide Review UA Slide Review Perf
--- NOTE | 2024-10-25 09:54 | PC.PHAR ---
Unknown when pt last took home medications. Pt uncooperative when asked any questions. Verified pts' current med list with [facility] with last fill dates and days supply. No current med list from [facility] pharmacy available, they are having phone problems today.
--- NOTE | 2024-10-25 12:52 | W.ED.NEUROSD ---
HPI - Neuro Symptoms/Deficit General: Chief Complaint: Neuro Symptoms/Deficit Stated Complaint: possible stroke Time Seen by Provider: 10/25/24 07:52 History of Present Illness: Chief complaint is found not talking in a vehicle. Per report patient was found in a vehicle at 7:00 this morning. Patient is not talking. Last known well was reportedly 3 AM. No focal deficits noted otherwise. Very limited history from EMS and limited due to patient not speaking. Review of systems and further history not obtainable from the patient. Related Data Home Medications Medication Instructions Recorded Confirmed acetaminophen 500 mg tablet 500 mg PO Q6H PRN Pain 12/13/19 10/25/24 (Tylenol Extra Strength) cholecalciferol (vitamin D3) 10 400 unit PO DAILY 12/13/19 10/25/24 mcg (400 unit) capsule aspirin 81 mg tablet,delayed 81 mg PO DAILY 06/15/21 10/25/24 release (Adult Aspirin Regimen) multivitamin 1 tab PO QAM 10/21/22 10/25/24 clonazepam 0.5 mg tablet 0.5 mg PO DAILY 08/29/24 10/25/24 melatonin 5 mg tablet 10 mg PO BEDTIME 08/29/24 10/25/24 mirtazapine 30 mg tablet 30 mg PO BEDTIME 08/29/24 10/25/24 rosuvastatin 20 mg tablet 20 mg PO DAILY 08/29/24 10/25/24 trazodone 100 mg tablet 100 mg PO BEDTIME 10/25/24 10/25/24 ziprasidone HCl 40 mg capsule 40 mg PO BID 10/25/24 10/25/24 Previous Rx's Medication Instructions Recorded diclofenac sodium 1 % topical gel 4 g topical QID #200 grams 04/04/24 ondansetron HCl 4 mg tablet 4 mg PO Q8H nausea #30 tabs 06/19/24 propranolol 120 mg capsule,24 120 mg PO DAILY #90 caps 08/29/24 hr,extended release upadacitinib 15 mg tablet,extended 15 mg PO DAILY #30 tabs 09/03/24 release 24 hr (Rinvoq) Allergies Allergy/AdvReac Type Severity Reaction Status Date / Time lithium Allergy Intermediate ADR-Halluci Verified 08/29/24 10:39 nating tetracycline Allergy Intermediate ALGY-Rash Verified 08/29/24 10:39 PFS ED PFSH: Medical History Immunization counseling Dry mouth Tremor Hip pain Psychiatric care Generalized anxiety disorder Major depressive disorder, recurrent episode with mood-congruent psychotic features Social History (Updated 09/03/24 @ 10:33 by Maritza Zamarripa LPN) Smoking and tobacco/nicotine status: current every day tobacco/nicotine user Alcohol intake: current Alcohol intake frequency: holidays/special occasions only Physical Exam Narrative: EXAM NARRATIVE: Patient is fully awake and alert. She will follow commands. She has no drift in her arms or legs or facial droop. Pupils are equal and reactive to light. She follows with full range ocular motion. Conjunctive is normal. Neck is supple. No signs of trauma to her head trunk or extremities in exposed areas. Heart regular rate and rhythm without rubs or murmurs. Lungs are clear to auscultation. Abdomen soft nontender with no palpable organomegaly. No vertebral tenderness over her back. Extremities warm well-perfused. No calf tenderness or pitting edema. She has moist mucous membranes. Patient will not talk or answer any questions however with prompting she would say 1 or 2 words. Course Vital Signs: Vital signs: Vital Signs Temperature 98.9 F 10/25/24 14:00 Pulse Rate 121 H 10/25/24 14:00 Respiratory Rate 18 10/25/24 14:00 Blood Pressure 128/77 10/25/24 14:00 Pulse Oximetry 94 10/25/24 14:00 Oxygen Delivery Me thod Room Air 10/25/24 14:00 MDM - Neuro Symptoms/Deficit Medical Decision Making Patient presents by EMS with reportedly being found in a vehicle not responding verbally. Certainly brainstem stroke considered and no available history initially so patient sent directly to CT for CT scan. Further history obtained after contacting family by nursing. Reportedly patient was in psychiatric hospital and got out and stopped taking her medications. She had gone out to smoke was suspected and did not come back to the house. The vehicle was not running when police found her and was not suspected carbon oxide poisoning however I ordered ABG to evaluate for carbon oxide poisoning. Shortly after arrival here patient did start speaking some. She clearly can speak and will very clearly speak at times when she wants something. Friends that she will ask to eat. When the nurse was removing her earrings she wanted to have her earrings and was clearly able to speak. Her speech is clear. I gave the patient a dose of Geodon as reported by family she had been off her Geodon. Patient now is talking more. She tells me she has lots of opportunities to kill herself. She states she is not safe at home. She threatens that she has lots of opportunities to harm herself and has suicidal ideations. Patient is neck is supple. CT of the head, CT angio head neck and chest x-ray negative for acute process per radiology. These were ordered to evaluate for stroke or pneumonia and workup of possible altered mental status. Patient's labs did not show significant abnormality. Salicylate level, acetaminophen level, alcohol level and urine drug screen were negative. Patient's potassium was low so I repleted with 40 mill equivalents of p.o. potassium and she may need further doses for the next [address] Willingham who accepts the patient for admission. Lab Data 10/25/24 07:50 10/25/24 07:[address] 10/25/24 07:59 IMPRESSION: 1. No acute intracranial hemorrhage or edema. 2. Mild progression of cerebral atrophy and small vessel disease since 2018. 3. No change in the perivascular spaces and the small lacunar infarcts in the caudate heads. Notified George Echevarria MD at 10/25/2024 8:07 AM. Chest X-Ray 10/25/24 08:03 IMPRESSION: No acute chest abnormality. Head/Neck CTA 10/25/24 08:03 IMPRESSION: 1. No significant cervical ICA stenosis. 2. Codominant and patent vertebral arteries bilaterally. 3. Basilar artery is patent. 4. No evidence of flow-limiting intracranial stenosis. Laboratory Results WBC 11.01 10^3/uL (3.29-11.43) 10/25/24 07:50 RBC 4.37 10^6/uL (3.85-5.65) 10/25/24 07:50 Hgb 13.30 g/dL (11.27-16.99) 10/25/24 07:50 Hct 40.8 % (36-47) 10/25/24 07:50 MCV 93.4 fl (85-98) 10/25/24 07:50 MCH 30.4 pg (27-33) 10/25/24 07:50 MCHC 32.6 g/dL (30-55) 10/25/24 07:50 RDW 13.1 % (12.1-15.1) 10/25/24 07:50 Plt Count 624 10^3/cmm (157-399) H 10/25/24 07:50 MPV 9.5 fL (7.4-10.4) 10/25/24 07:50 Neut % (Auto) 82.5 % 10/25/24 07:50 Lymph % (Auto) 12.2 % 10/25/24 07:50 [place] % (Auto) 4.2 % 10/25/24 07:50 Eos % (Auto) 0.3 % 10/25/24 07:50 Baso % (Auto) 0.3 % 10/25/24 07:50 Neut # (Auto) 9.10 10^3/uL (1.8-7.7) H 10/25/24 07:50 Lymph # (Auto) 1.3 10^3/uL (0.8-4.8) 10/25/24 07:50 [place] # (Auto) 0.5 10^3/uL (0.2-0.9) 10/25/24 07:50 Eos # (Auto) 0.0 10^3/uL (0.0-0.8) 10/25/24 07:50 Baso # (Auto) 0.0 10^3/uL (0.0-0.1) 10/25/24 07:50 Nucleated RBC % (auto) 0 % 10/25/24 07:50 Nucleated RBCs # 0.0 /100WBC 10/25/24 07:50 PT 14.00 SECONDS (12.1-14.9) 10/25/24 07:50 INR 1.01 (0.8-1.2) 10/25/24 07:50 APTT 34.0 SECONDS (23.9-36.7) 10/25/24 07:50 Specimen Type Arterial 10/25/24 08:17 Sample Site Radial, right 10/25/24 08:17 ABG pH 7.48 (7.35-7.45) H 10/25/24 08:17 ABG pCO2 41.2 mmHg (35-45) 10/25/24 08:17 ABG pO2 74.9 mmHg (80.0-100.0) L 10/25/24 08:17 ABG PO2/FiO2 Ratio 356 10/25/24 08:17 ABG HCO3 30.7 mmol/L (22-26) H 10/25/24 08:17 ABG O2 Saturation 96.2 10/25/24 08:17 ABG Base Excess 6.5 mmol/L (-2.0-2.0) H 10/25/24 08:17 Frankie Test Pos 10/25/24 08:17 A-a O2 Gradient 3.0 mmHg (5-10) L 10/25/24 08:17 Hematocrit 43.2 % (37-47) 10/25/24 08:17 Hgb O2 Saturation 90.6 % (95-100) L 10/25/24 08:17 Carboxyhemoglobin 5.6 %THgb (0.4-20.1) 10/25/24 08:17 Methemoglobin 0.3 % (0.4-1.5) L 10/25/24 08:17 Total Hemoglobin 14.1 g/dL (12-16) 10/25/24 08:17 Sodium 142.0 mmol/L (131-143) 10/25/24 08:17 Potassium 2.9 mmol/L (3.5-5.0) L 10/25/24 08:17 Glucose 138.0 mg/dL (70-115) H 10/25/24 08:17 Ionized Calcium 1.2 mmol/L (1.1-1.4) 10/25/24 08:17 O2 Delivery Device Room air 10/25/24 08:17 FiO2 21.0 % 10/25/24 08:17 Real Estate Associate Attorney ID Cak 10/25/24 08:17 Sodium 139 mmol/L (136-145) 10/25/24 07:50 Potassium 2.9 mmol/L (3.5-5.1) L 10/25/24 07:50 Chloride 94 mmol/L (98-107) L 10/25/24 07:50 Carbon Dioxide 28 mmol/L (22-29) 10/25/24 07:50 Anion Gap 19.9 (5-19) H 10/25/24 07:50 BUN 4 mg/dL (8-23) L 10/25/24 07:50 Creatinine 0.6 mg/dL (0.5-0.9) 10/25/24 07:50 GFR Calculation 101.6 mL/min (90-130) 10/25/24 07:50 Glucose 133 mg/dL (65-115) H 10/25/24 07:50 POC Glucose 126 mg/dL (70-110) H 10/25/24 07:57 Calculated Osmolality 287 mOsm/kg (285-295) 10/25/24 07:50 Calcium 9.3 mg/dL (8.5-10.5) 10/25/24 07:50 Total Bilirubin 0.4 mg/dL (0.15-1.2) 10/25/24 07:50 AST 19 U/L (0-32) 10/25/24 07:50 ALT 17 U/L (0-33) 10/25/24 07:50 Alkaline Phosphatase 123 U/L (35-105) H 10/25/24 07:50 Total Protein 7.0 g/dL (6.6-8.7) 10/25/24 07:50 Albumin 3.1 g/dL (3.5-5.2) L 10/25/24 07:50 Globulin 3.9 g/dL (1.3-4.6) 10/25/24 07:50 Urine Color Yellow (Yellow) 10/25/24 09:10 Urine Appearance Cloudy (CLEAR) A 10/25/24 09:10 Urine pH 7.0 (5-7) 10/25/24 09:10 Ur Specific [place] 1.044 (1.005-1.030) H 10/25/24 09:10 Urine Protein Trace (Negative) A 10/25/24 09:10 Urine Glucose (UA) Negative (Normal) 10/25/24 09:10 Urine Ketones Negative (Negative) 10/25/24 09:10 Urine Blood Negative (Negative) 10/25/24 09:10 Urine Nitrate Negative (Negative) 10/25/24 09:10 Urine Bilirubin Negative (Negative) 10/25/24 09:10 Urine Urobilinogen 1.0 mg/dL (Negative) 10/25/24 09:10 Ur Leukocyte Esterase Negative (Negative) 10/25/24 09:10 Urine RBC 3-5 /hpf (0-2) 10/25/24 09:10 Urine WBC 0-5 /hpf (0-5) 10/25/24 09:10 Ur Squamous Epith Cells 21-50 /hpf (0-5) H 10/25/24 09:10 Amorphous Sediment Not Reportable 10/25/24 09:10 Urine Bacteria 1+ /hpf (NONE) H 10/25/24 09:10 Hyaline Casts 2.05 /lpf 10/25/24 09:10 Salicylates < 0.3 mg/dL (3-10) L 10/25/24 07:50 Urine Opiates Screen Negative ng/mL (Negative) 10/25/24 09:10 Acetaminophen < 5.0 ug/mL (10-30) L 10/25/24 07:50 Ur Barbiturates Screen Negative ng/mL (Negative) 10/25/24 09:10 Ur Phencyclidine Scrn Negative ng/mL (Negative) 10/25/24 09:10 Ur Amphetamines Screen Negative ng/mL (Negative) 10/25/24 09:10 U Benzodiazepines Scrn Negative ng/mL (Negative) 10/25/24 09:10 Urine Cocaine Screen Negative ng/mL (Negative) 10/25/24 09:10 U Marijuana (THC) Screen Negative ng/mL (Negative) 10/25/24 09:10 Ethyl Alcohol < 10 mg/dL (0-10) 10/25/24 07:50 All radiology interpretation(s) finalized by discharge Discharge Plan Discharge Patient Disposition: Admitted As Inpatient Admit Provider: Joseph Willingham Clinical Impression: Major depressive disorder, recurrent episode with mood-congruent psychotic features Condition: Stable Coding Level of Care Code ED Clinical Trial Head for Lino Mckay
--- NOTE | 2024-10-25 13:30 | PC.NURSE ---
96 hour hold rights read and reviewed with patient. Fahad from security present during reading of rights. Patient stated I don't want to go down there, I want to go to [facility]. I've been there done that This nurse instructed patient that we already have a bed in our unit for her and will be moving her shortly. Patient stated That's fine This nurse asked patient if she had any questions about her 96 hour hold. Patient stated no and verbalized understandings.
--- NOTE | 2024-10-25 14:30 | PC.NURSE ---
Patient was found in car, not responding. Stroke work-up was done. Patient deemed medically stable, no signs of stroke. Patient has a psych history, requested to be sent to [place]. Patient last here on unit in 2015 During admission assessment, patient not willing to answer most questions. When she does answer a question, patient's responses are delayed. When asked what year it is, patient said 2024 then said 3049 . Patient knew she is at [facility].
--- NOTE | 2024-10-25 17:05 | PC.NURSE ---
THIS NURSE TALKED WITH PATIENT'S MOTHER. PATIENT'S MOTHER BROUGHT IN MEDICATION LIST. PER MOTHER, PATIENT STOPPED TAKING MEDICATION IN MID-SEPTEMBER BECAUSE OF WEIGHT GAIN. MOTHER SAID THAT PATIENT GETS TO WHERE SHE DOESN'T TALK WHEN SHE IS OFF OF HER MEDICATIONS. PATIENT WAS AT [facility] ON 10/19/[address] MARISCAL REVIEWED MEDICATION LIST. THIS NURSE TO DECREASE MIRTAZAPINE FROM 30 TO 15MG, AND TO CHANGE GEODON FROM 60MG TID, TO 80MG BID.
--- NOTE | 2024-10-25 17:19 | PC.NURSE ---
ENBREL 50MG/ML THIS NURSE TALKED WITH PATIENT'S MOTHER. PATIENT HAS NOT TAKEN HER ENBREL THIS MONTH. MOTHER THINKS SHE MAY NOT HAVE TAKEN IT LAST MONTH, EITHER. PER MOTHER, PATIENT SEE'S DR. Frazier FOR RHEUMATOLOGY. PATIENT ALSO SEES [facility] FOR PSYCHIATRIC SERVICES.
[2024-10-25] MEDS: CLONazepam 0.5 mg Tablet PO (21:03)
[2024-10-25] MEDS: trazodone 50 mg Tablet PO (21:03)
[2024-10-25] MEDS: mirtazapine 15 mg Tablet PO (21:03)
[2024-10-26 06:00] VITALS: BP 132/80; PULSE 103; RESP 16; O2SAT 93
[2024-10-26 08:37] LABS: Alanine Aminotransferase 18 U/L (0-33); Albumin Level 3.4 g/dL (3.5-5.2); Alkaline Phosphatase 132 U/L (35-105); Anion Gap 17.5 (5-19); Aspartate Amino Transferase 20 U/L (0-32); Blood Urea Nitrogen 5 mg/dL (8-23); Calcium 9.6 mg/dL (8.5-10.5); Carbon Dioxide 29 mmol/L (22-29); Chloride 96 mmol/L (98-107); Creatinine Clr Calc Pharmacy 95.4591; Glomerular Filtration Rate 85.1 mL/min (90-130); Glucose 123 mg/dL (65-115); Osmolality Calculated 287 mOsm/kg (285-295); Potassium 3.5 mmol/L (3.5-5.1); Sodium 139 mmol/L (136-145); Total Bilirubin 0.4 mg/dL (0.15-1.2); Total Protein 7.4 g/dL (6.6-8.7)
[2024-10-26] MEDS: atorvastatin 40 mg Tablet 80 MG PO (10:21)
[2024-10-26] MEDS: multivitamin therapeutic Tablet 1 TAB PO (10:21)
[2024-10-26] MEDS: CLONazepam 0.5 mg Tablet PO ×2 (10:21→17:23)
[2024-10-26] MEDS: ziprasidone hcl 40 mg Capsule PO (10:22)
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
[2024-10-26] MEDS: ARIPiprazole 10 mg Tablet 5 MG PO (13:00)
[2024-10-26 14:00] VITALS: BP 126/84; PULSE 88; RESP 16; TEMP 36.8; O2SAT 96
[2024-10-26] MEDS: mirtazapine 15 mg Tablet PO (21:23)
[2024-10-26 22:00] VITALS: BP 119/84; PULSE 85; RESP 16; TEMP 37.1; O2SAT 99
[2024-10-27 06:00] VITALS: BP 154/81; PULSE 95; RESP 18; O2SAT 92
[2024-10-27] MEDS: CLONazepam 0.5 mg Tablet PO ×2 (08:34→17:34)
[2024-10-27] MEDS: fluoxetine 20 mg Capsule PO (08:34)
[2024-10-27] MEDS: ARIPiprazole 10 mg Tablet 5 MG PO (08:35)
[2024-10-27] MEDS: multivitamin therapeutic Tablet 1 TAB PO (08:35)
[2024-10-27] MEDS: atorvastatin 40 mg Tablet 80 MG PO (08:35)
[2024-10-27 14:00] VITALS: BP 120/85; PULSE 140; RESP 16; TEMP 36.7; O2SAT 98
--- NOTE | 2024-10-27 16:44 | P.NPUPN_ITS ---
Subjective NPU 2 Subjective: 63-year-old female with major depressive disorder with psychotic features admitted with increased disorganized behavior and disorganized speech. The patient had appeared isolative on the milieu. She reported no side effects from the Abilify. She had reported feeling tired and stated that she was still having problems with controlling her thoughts. She had continued to report that her thoughts were jumbled. She had reported no depressive symptoms at this time. Mental Status Exam 2 MSE Comments: The patient is a casually dressed overweight female who appeared her stated age with poor hygiene and normal gait. She was pleasant and cooperative on interview. Her speech was decreased in volume with increased speech latency. There was no evidence of any abnormal involuntary motor movements, tics, or tremors appreciated. Her thought process was linear, logical, and goal- directed. She denied any suicidal or homicidal ideation. Her mood was described as okay. Her affect appeared odd and subdued. There was no clear evidence of delusional thinking. She did appear internally preoccupied and did at times appear to be responding to internal stimuli although she denied any auditory or visual hallucinations. Her attention span appeared poor. She was alert and oriented to person place time and situation. Her recent and remote memory appeared poor on interview. Her insight is limited. Her judgment is poor. Her impulse control appeared guarded. Vitals/I&O/Wt Last Vital Signs Temp 98.1 F 10/27/24 14:00 Pulse 140 H 10/27/24 14:00 Resp 16 10/27/24 14:00 BP 120/85 10/27/24 14:00 Pulse Ox 98 10/27/24 14:00 O2 Del Method Room Air 10/27/24 14:00 Weight last 48 hrs Weight 95.889 kg Data NPU 10/25/24 07:50 10/26/24 08:12 A&P Assessment and plan (1) Major depressive disorder, recurrent episode with mood-congruent psychotic features: (2) Generalized anxiety disorder: Plan 63-year-old female with a past history of major depressive disorder with psychosis with questionable history of cipriano recently noncompliant with all of her medications for over a month with significant decompensation reported and observed. The patient was agreeable to a change in medications to optimize her ability to maintain mood stability and help with psychosis. #1.? Engage patient in individual milieu and group therapy. #2?? Recommend sober living treatment at the highest level of care to which the patient is willing to commit #3??? Increase Abilify to 10mg daily, continue Prozac at 20mg daily. #4?? TO-15 minute checks? #5?? Will attempt to gather collateral information Involuntary Hold Information 2 96 Hour Hold: 96 Hour Involuntary Admission: Yes 96 Hour Hold Ending Date: 10/31/24 96 Hour Hold Ending Time: 13:27 Attestations NPU 2 Medical Necessity Statement*: Inpatient hospitalization is medically necessary and deemed to ?be ?the clinically appropriate intervention ?at this time.? We will monitor/initiate medications and make changes as indicated.? The patient?s likely length of stay 7-10 days. Coding Level of Care Code Acute Code for [facility] Fwd Diagnoses Major depressive disorder, recurrent episode with mood-congruent psychotic features F33.3 Generalized anxiety disorder F41.1
[2024-10-27] MEDS: acetaminophen 325 mg Tablet 650 MG PO (20:56)
[2024-10-27] MEDS: mirtazapine 15 mg Tablet PO (20:56)
[2024-10-27 22:00] VITALS: BP 111/73; PULSE 83; RESP 16; TEMP 36.7; O2SAT 96
[2024-10-28 06:00] VITALS: BP 162/75; PULSE 97; RESP 16; O2SAT 94
[2024-10-28] MEDS: fluoxetine 20 mg Capsule PO (08:02)
[2024-10-28] MEDS: atorvastatin 40 mg Tablet 80 MG PO (08:02)
[2024-10-28] MEDS: multivitamin therapeutic Tablet 1 TAB PO (08:02)
[2024-10-28] MEDS: ARIPiprazole 10 mg Tablet PO (08:02)
[2024-10-28] MEDS: CLONazepam 0.5 mg Tablet PO ×2 (08:02→17:31)
[2024-10-28 14:00] VITALS: BP 116/72; PULSE 75; RESP 17; TEMP 36.4; O2SAT 95
--- NOTE | 2024-10-28 17:30 | P.NPUPN_ITS ---
Subjective NPU 2 Subjective: 63-year-old female with major depressive disorder with psychotic features admitted with increased disorganized behavior and disorganized speech. The patient had reported that she was feeling better. She had continued to appear somewhat paranoid stating that someone had stolen her money prior to entering here in the hospital. The patient had denied hearing voices currently but continued to report depression. The patient had continued to complain about her anxiety. She had required some prompting for completion of activities of daily living and remained in her bed for much of the day. Mental Status Exam 2 MSE Comments: The patient is a casually dressed overweight female who appeared her stated age with poor hygiene and normal gait. She was pleasant and cooperative on interview. Her speech was decreased in volume and rate with increased speech latency. There was no evidence of any abnormal involuntary motor movements, tics, or tremors appreciated. Her thought process was linear, logical, and goal-directed. She denied any suicidal or homicidal ideation. Her mood was described as okay. Her affect appeared subdued. There was no clear evidence of delusional thinking. She did appear internally preoccupied and did at times appear to be responding to internal stimuli although she denied any auditory or visual hallucinations. Her attention span appeared poor. She was alert and oriented to person place time and situation. Her recent and remote memory appeared poor on interview. Her insight is limited. Her judgment is poor. Her impulse control appeared guarded. Vitals/I&O/Wt Last Vital Signs Temp 97.5 F L 10/28/24 14:00 Pulse 75 10/28/24 14:00 Resp 17 10/28/24 14:00 BP 116/72 10/28/24 14:00 Pulse Ox 95 10/28/24 14:00 O2 Del Method Room Air 10/27/24 14:00 Weight last 48 hrs Weight 95.889 kg Data NPU 10/25/24 07:50 10/26/24 08:12 A&P Assessment and plan (1) Major depressive disorder, recurrent episode with mood-congruent psychotic features: (2) Generalized anxiety disorder: Plan 63-year-old female with a past history of major depressive disorder with psychosis with questionable history of cipriano recently noncompliant with all of her medications for over a month with significant decompensation reported and observed. The patient was agreeable to a change in medications to optimize her ability to maintain mood stability and help with psychosis. #1.? Engage patient in individual milieu and group therapy. #2?? Recommend sober living treatment at the highest level of care to which the patient is willing to commit #3??? Increase Abilify to 15mg daily, continue Prozac at 20mg daily. #4?? TO-15 minute checks? #5?? Will attempt to gather collateral information Involuntary Hold Information 2 96 Hour Hold: 96 Hour Involuntary Admission: Yes 96 Hour Hold Ending Date: 10/31/24 96 Hour Hold Ending Time: 13:27 Other Hold: Hold End Date: 10/31/24 Attestations NPU 2 Medical Necessity Statement*: Inpatient hospitalization is medically necessary and deemed to ?be ?the clinically appropriate intervention ?at this time.? We will monitor/initiate medications and make changes as indicated.? The patient?s likely length of stay 7-10 days. Coding Level of Care Code Acute Code for g Fwd Diagnoses Major depressive disorder, recurrent episode with mood-congruent psychotic features F33.3 Generalized anxiety disorder F41.1
[2024-10-28] MEDS: mirtazapine 15 mg Tablet PO (20:27)
[2024-10-28 20:51] VITALS: BP 153/85; PULSE 88; RESP 16; TEMP 36.3; O2SAT 94
[2024-10-29 06:00] VITALS: BP 155/91; PULSE 97; RESP 16; TEMP 36.8; O2SAT 93
[2024-10-29] MEDS: CLONazepam 0.5 mg Tablet PO ×2 (09:06→17:45)
[2024-10-29] MEDS: fluoxetine 20 mg Capsule PO (09:06)
[2024-10-29] MEDS: ARIPiprazole 10 mg Tablet 15 MG PO (09:06)
[2024-10-29] MEDS: atorvastatin 40 mg Tablet 80 MG PO (09:06)
[2024-10-29] MEDS: multivitamin therapeutic Tablet 1 TAB PO (09:06)
[2024-10-29 14:00] VITALS: BP 129/85; PULSE 99; RESP 16; TEMP 36.6; O2SAT 93
--- NOTE | 2024-10-29 14:34 | P.NPUPN_ITS ---
Subjective NPU 2 Subjective: 63-year-old female with major depressive disorder with psychotic features admitted with increased disorganized behavior and disorganized speech. Patient had considerable problems with answering questions today. She appeared to have significant delay and slow speech and movements. She had been lying in her bed most of the day. She was able to provide her whereabouts. She did appear to have some difficulties with understanding questions. Mental Status Exam 2 MSE Comments: The patient is a casually dressed overweight female who appeared her stated age with poor hygiene lying in bed. She was in substantial distress. Her speech was decreased in volume and decreased in rate and productivity with profound speech latency. There was no evidence of any abnormal involuntary motor movements, tics, or tremors appreciated. Her thought process was linear. She denied any suicidal or homicidal ideation. Her mood was not endorsed. Her affect appeared subdued. There was no clear evidence of delusional thinking. She did appear internally preoccupied and did at times appear to be responding to internal stimuli although she denied any auditory or visual hallucinations. Her attention span appeared poor. She was alert and oriented to person place time and situation. Her recent and remote memory appeared poor on interview. Her insight is limited. Her judgment is poor. Her impulse control appeared guarded. Vitals/I&O/Wt Last Vital Signs Temp 98 F 10/29/24 14:00 Pulse 99 10/29/24 14:00 Resp 16 10/29/24 14:00 BP 129/85 10/29/24 14:00 Pulse Ox 93 10/29/24 14:00 O2 Del Method Room Air 10/29/24 14:00 Data NPU 10/25/24 07:50 10/26/24 08:12 A&P Assessment and plan (1) Major depressive disorder, recurrent episode with mood-congruent psychotic features: (2) Generalized anxiety disorder: (3) Catatonia: Plan 63-year-old female with a past history of major depressive disorder with psychosis with questionable history of cipriano recently noncompliant with all of her medications for over a month with significant decompensation reported and observed. The patient was agreeable to a change in medications to optimize her ability to maintain mood stability and help with psychosis. #1.? Engage patient in individual milieu and group therapy. #2?? Recommend sober living treatment at the highest level of care to which the patient is willing to commit #3??? Continue Abilify 15mg daily, continue Prozac at 20mg daily. Klonopin .5mg bid. Trial of 2mg of Ativan now. Possible catatonia. #4?? TO-15 minute checks? #5?? Will attempt to gather collateral information Involuntary Hold Information 2 96 Hour Hold: 96 Hour Involuntary Admission: Yes 96 Hour Hold Ending Date: 10/31/24 96 Hour Hold Ending Time: 13:27 Other Hold: Hold End Date: 10/31/24 Attestations NPU 2 Medical Necessity Statement*: Inpatient hospitalization is medically necessary and deemed to ?be ?the clinically appropriate intervention ?at this time.? We will monitor/initiate medications and make changes as indicated.? The patient?s likely length of stay 7-10 days. Coding Level of Care Code Acute Code for [facility] Fwd Diagnoses Major depressive disorder, recurrent episode with mood-congruent psychotic features F33.3 Generalized anxiety disorder F41.1 Catatonia F06.1
[2024-10-29] MEDS: LORazepam 2 mg Tablet PO (14:49)
[2024-10-29 19:27] VITALS: BP 122/79; PULSE 93; RESP 18; TEMP 36.7; O2SAT 98
[2024-10-29] MEDS: mirtazapine 15 mg Tablet PO (19:34)
[2024-10-30 06:00] VITALS: BP 150/97; PULSE 95; RESP 14; TEMP 37; O2SAT 96
[2024-10-30] MEDS: CLONazepam 0.5 mg Tablet PO (11:48)
[2024-10-30] MEDS: multivitamin therapeutic Tablet 1 TAB PO (11:48)
[2024-10-30] MEDS: fluoxetine 20 mg Capsule PO (11:49)
[2024-10-30] MEDS: ARIPiprazole 10 mg Tablet 15 MG PO (11:49)
[2024-10-30] MEDS: atorvastatin 40 mg Tablet 80 MG PO (11:49)
--- NOTE | 2024-10-30 12:36 | P.NPUPN_ITS ---
Subjective NPU 2 Subjective: 63-year-old female with major depressive disorder with psychotic features admitted with increased disorganized behavior and disorganized speech. The patient continued to have problems with expressing her feelings. She appeared to show significant delay in answering questions. She had remained in bed most of the day. The patient had significant evidence of extreme slowing as she had struggled to move and struggled to engage with other peers. She was unable to go to groups. She also appeared to have difficulty answering questions. Mental Status Exam 2 MSE Comments: The patient is a casually dressed overweight female who appeared her stated age with poor hygiene lying in bed. She was in substantial distress. Her speech was decreased in volume and decreased in rate and productivity with profound speech latency. There was no evidence of any abnormal involuntary motor movements, tics, or tremors appreciated. Her thought process was nonlinear. She denied any suicidal or homicidal ideation. Her mood was not endorsed. Her affect appeared subdued. There was no clear evidence of delusional thinking. She did appear internally preoccupied and did at times appear to be responding to internal stimuli although she denied any auditory or visual hallucinations. Her attention span appeared poor. She was alert and oriented to person only answering to her name only. Her recent and remote memory appeared poor on interview. Her insight is limited. Her judgment is poor. Her impulse control appeared guarded. Vitals/I&O/Wt Last Vital Signs Temp 98.6 F 10/30/24 06:00 Pulse 95 10/30/24 06:00 Resp 14 10/30/24 06:00 BP 150/97 10/30/24 06:00 Pulse Ox 96 10/30/24 06:00 O2 Del Method Room Air 10/30/24 06:00 Data NPU 10/25/24 07:50 10/26/24 08:12 A&P Assessment and plan (1) Major depressive disorder, recurrent episode with mood-congruent psychotic features: (2) Generalized anxiety disorder: (3) Catatonia: Plan 63-year-old female with a past history of major depressive disorder with psychosis with questionable history of cipriano recently noncompliant with all of her medications for over a month with significant decompensation reported and observed. The patient was agreeable to a change in medications to optimize her ability to maintain mood stability and help with psychosis. #1.? Engage patient in individual milieu and group therapy. #2?? Recommend sober living treatment at the highest level of care to which the patient is willing to commit #3??? Continue Abilify 15mg daily, continue Prozac at 20mg daily. Klonopin .5mg bid. Concern over catatonic features, trial of ativan 1mg qid. #4?? TO-15 minute checks? #5?? Will attempt to gather collateral information Involuntary Hold Information 2 96 Hour Hold: 96 Hour Involuntary Admission: Yes 96 Hour Hold Ending Date: 10/31/24 96 Hour Hold Ending Time: 13:27 Other Hold: Hold End Date: 10/31/24 Attestations NPU 2 Medical Necessity Statement*: Inpatient hospitalization is medically necessary and deemed to ?be ?the clinically appropriate intervention ?at this time.? We will monitor/initiate medications and make changes as indicated.? The patient?s likely length of stay 7-10 days. Coding Level of Care Code Acute Code for g Fwd Diagnoses Major depressive disorder, recurrent episode with mood-congruent psychotic features F33.3 Generalized anxiety disorder F41.1 Catatonia F06.1
[2024-10-30 14:00] VITALS: BP 126/84; PULSE 103; RESP 16; TEMP 37.1; O2SAT 91
[2024-10-30] MEDS: LORazepam 1 mg Tablet PO ×3 (15:20→20:16)
[2024-10-30 19:35] VITALS: BP 125/72; PULSE 94; RESP 14; TEMP 36.8; O2SAT 90
[2024-10-30] MEDS: mirtazapine 15 mg Tablet PO (20:16)
[2024-10-31] MEDS: acetaminophen 325 mg Tablet 650 MG PO (03:55)
[2024-10-31 06:00] VITALS: BP 134/77; PULSE 83; RESP 16; TEMP 37; O2SAT 80
[2024-10-31] MEDS: LORazepam 1 mg Tablet PO ×4 (07:58→20:15)
[2024-10-31] MEDS: fluoxetine 20 mg Capsule PO (07:58)
[2024-10-31] MEDS: multivitamin therapeutic Tablet 1 TAB PO (07:59)
[2024-10-31] MEDS: atorvastatin 40 mg Tablet 80 MG PO (07:59)
[2024-10-31] MEDS: ARIPiprazole 10 mg Tablet 15 MG PO (07:59)
[2024-10-31] MEDS: ondansetron 4 MG Tablet PO (08:01)
--- NOTE | 2024-10-31 13:25 | P.NPUPN_ITS ---
Subjective NPU 2 Subjective: 63-year-old female with major depressive disorder with psychotic features admitted with increased disorganized behavior and disorganized speech. The patient had continued to struggle with communication. She is struggled with answering questions regarding her mood. She had spent most of the day in her bed room. She had asked when can I go home . After making that statement, the patient had struggled with answering any more questions. Mental Status Exam 2 MSE Comments: The patient is a casually dressed overweight female who appeared her stated age with poor hygiene lying in bed. She was in substantial distress. Her speech was decreased in volume and decreased in rate and productivity with profound speech latency. There was no evidence of any abnormal involuntary motor movements, tics, or tremors appreciated. Her thought process was nonlinear. She denied any suicidal or homicidal ideation. Her mood was not endorsed. Her affect appeared subdued. There was no clear evidence of delusional thinking. She did appear internally preoccupied and did at times appear to be responding to internal stimuli although she denied any auditory or visual hallucinations. Her attention span appeared poor. She was alert and oriented to person only answering to her name only. Her recent and remote memory appeared poor on interview. Her insight is limited. Her judgment is poor. Her impulse control appeared guarded. Vitals/I&O/Wt Last Vital Signs Temp 98.6 F 10/31/24 06:00 Pulse 83 10/31/24 06:00 Resp 16 10/31/24 06:00 BP 134/77 10/31/24 06:00 Pulse Ox 80 L 10/31/24 06:00 O2 Del Method Room Air 10/31/24 06:00 10/30/24 10/31/24 10/31/24 22:59 06:59 14:59 Intake Total 480 / 480 Balance 480 / 480 Data NPU 10/25/24 07:50 10/26/24 08:12 A&P Assessment and plan (1) Major depressive disorder, recurrent episode with mood-congruent psychotic features: (2) Generalized anxiety disorder: (3) Catatonia: Plan 63-year-old female with a past history of major depressive disorder with psychosis with questionable history of cipriano recently noncompliant with all of her medications for over a month with significant decompensation reported and observed. The patient was agreeable to a change in medications to optimize her ability to maintain mood stability and help with psychosis. #1.? Engage patient in individual milieu and group therapy. #2?? Recommend sober living treatment at the highest level of care to which the patient is willing to commit #3??? Continue Abilify 15mg daily, increase Prozac 30mg daily. . Concern over catatonic features, trial of ativan 1mg qid. #4?? TO-15 minute checks? #5?? Will attempt to gather collateral information Involuntary Hold Information 2 96 Hour Hold: 96 Hour Involuntary Admission: Yes 96 Hour Hold Ending Date: 10/31/24 96 Hour Hold Ending Time: 13:27 Other Hold: Hold End Date: 10/31/24 Attestations NPU 2 Medical Necessity Statement*: Inpatient hospitalization is medically necessary and deemed to ?be ?the clinically appropriate intervention ?at this time.? We will monitor/initiate medications and make changes as indicated.? The patient?s likely length of stay 7-10 days. Coding Level of Care Code Acute Code for g Fwd Diagnoses Major depressive disorder, recurrent episode with mood-congruent psychotic features F33.3 Generalized anxiety disorder F41.1 Catatonia F06.1
[2024-10-31 14:00] VITALS: BP 120/86; PULSE 106; RESP 16; O2SAT 92
[2024-10-31] MEDS: mirtazapine 15 mg Tablet 7.5 MG PO (20:15)
[2024-10-31 20:29] VITALS: BP 131/84; PULSE 95; RESP 16; TEMP 36.7; O2SAT 93
[2024-11-01 06:00] VITALS: BP 139/90; PULSE 93; RESP 16; TEMP 36.4; O2SAT 94
[2024-11-01] MEDS: LORazepam 1 mg Tablet PO ×2 (08:55→13:40)
[2024-11-01] MEDS: multivitamin therapeutic Tablet 1 TAB PO (08:55)
[2024-11-01] MEDS: atorvastatin 40 mg Tablet 80 MG PO (08:57)
[2024-11-01] MEDS: ARIPiprazole 10 mg Tablet 15 MG PO (08:57)
[2024-11-01] MEDS: fluoxetine 10 mg Capsule 30 MG PO (08:57)
[2024-11-01 14:00] VITALS: BP 95/60; PULSE 91; RESP 16; TEMP 37; O2SAT 93
--- NOTE | 2024-11-01 14:56 | P.NPUPN_ITS ---
Subjective NPU 2 Subjective: 63-year-old female with major depressive disorder with psychotic features admitted with increased disorganized behavior and disorganized speech. Patient had continued to report struggling with feeling unsafe stating that she wanted the handbook writer of this note to be her doctor outside of here. She continued to have significant problems with communicating her needs here on the unit. She had appeared to have extreme slowness of movements at times and had significant problems with truncated responses and extreme delays in answering questions. She was unable to answer any questions regarding her mood today. She could not answer questions regarding whether she was still hearing voices. Staff notes the patient had been able to leave her room briefly to eat. She had limited socialization with others. Mental Status Exam 2 MSE Comments: The patient is a casually dressed overweight female who appeared her stated age with poor hygiene lying in bed. She was in substantial distress. Her speech was decreased in volume and decreased in rate and productivity with profound speech latency. There was no evidence of any abnormal involuntary motor movements, tics, or tremors appreciated. Her thought process was nonlinear. She denied any suicidal or homicidal ideation. Her mood was not endorsed. Her affect appeared subdued. There was no clear evidence of delusional thinking. She did appear internally preoccupied and did at times appear to be responding to internal stimuli although she denied any auditory or visual hallucinations. Her attention span appeared poor. She was alert and oriented to person only answering to her name only. Her recent and remote memory appeared poor on interview. Her insight is limited. Her judgment is poor. Her impulse control appeared guarded. Vitals/I&O/Wt Last Vital Signs Temp 97.6 F 11/01/24 06:00 Pulse 93 11/01/24 06:00 Resp 16 11/01/24 06:00 BP 139/90 11/01/24 06:00 Pulse Ox 94 11/01/24 06:00 O2 Del Method Room Air 10/31/24 06:00 10/31/24 11/01/24 11/01/24 22:59 06:59 14:59 Intake Total 240 / 240 Balance 240 / 240 Data NPU 10/25/24 07:50 10/26/24 08:12 A&P Assessment and plan (1) Major depressive disorder, recurrent episode with mood-congruent psychotic features: (2) Generalized anxiety disorder: (3) Catatonia: Plan 63-year-old female with a past history of major depressive disorder with psychosis with questionable history of cipriano recently noncompliant with all of her medications for over a month with significant decompensation reported and observed. The patient was agreeable to a change in medications to optimize her ability to maintain mood stability and help with psychosis. #1.? Engage patient in individual milieu and group therapy. #2?? Recommend sober living treatment at the highest level of care to which the patient is willing to commit #3??? Increase abilify to 20mg daily, increase Prozac 30mg daily. . Concern over catatonic features, increase ativan to 6mg/day. #4?? TO-15 minute checks? #5?? Will attempt to gather collateral information Involuntary Hold Information 2 96 Hour Hold: 96 Hour Involuntary Admission: Yes 96 Hour Hold Ending Date: 10/31/24 96 Hour Hold Ending Time: 13:27 Other Hold: Hold End Date: 10/31/24 Attestations NPU 2 Medical Necessity Statement*: Inpatient hospitalization is medically necessary and deemed to ?be ?the clinically appropriate intervention ?at this time.? We will monitor/initiate medications and make changes as indicated.? The patient?s likely length of stay 5-7 days. Coding Level of Care Code Acute Code for [facility] Fwd Diagnoses Major depressive disorder, recurrent episode with mood-congruent psychotic features F33.3 Generalized anxiety disorder F41.1 Catatonia F06.1
[2024-11-01] MEDS: LORazepam 1 mg Tablet 1.5 MG PO ×2 (16:57→21:29)
[2024-11-01 19:44] VITALS: BP 115/73; PULSE 86; RESP 16; TEMP 36.9; O2SAT 91
[2024-11-01] MEDS: mirtazapine 15 mg Tablet 7.5 MG PO (21:29)
[2024-11-02 06:00] VITALS: BP 135/85; PULSE 82; RESP 16; TEMP 36.5; O2SAT 91
[2024-11-02] MEDS: atorvastatin 40 mg Tablet 80 MG PO (08:30)
[2024-11-02] MEDS: fluoxetine 10 mg Capsule 30 MG PO (08:30)
[2024-11-02] MEDS: ARIPiprazole 10 mg Tablet 20 MG PO (08:30)
[2024-11-02] MEDS: multivitamin therapeutic Tablet 1 TAB PO (08:30)
[2024-11-02] MEDS: LORazepam 1 mg Tablet 1.5 MG PO ×4 (08:30→21:12)
[2024-11-02 14:00] VITALS: BP 151/93; PULSE 124; RESP 17; O2SAT 95
--- NOTE | 2024-11-02 14:10 | P.NPUPN_ITS ---
Subjective NPU 2 Subjective: 63-year-old female with major depressive disorder with psychotic features admitted with increased disorganized behavior and disorganized speech and some catatonic features. She continued to have significant psychomotor slowing unable to answer questions without significant delays sometimes lasting minutes. She had been unable to describe how she feels. She had continued to spend much of the day in bed with no interactions with others. She was unable to describe whether she was distracted by her thoughts. She continued to show significant slowness in regards to completion of basic requests including following student two-step commands. Patient had limited response to questions with simple 2 word or one-word answers. Mental Status Exam 2 MSE Comments: The patient is a casually dressed overweight female who appeared her stated age with poor hygiene lying in bed. She was in substantial distress. Her speech was decreased in volume and decreased in rate and productivity with profound speech latency. There was no evidence of any abnormal involuntary motor movements, tics, or tremors appreciated. Her thought process was nonlinear. She denied any suicidal or homicidal ideation. Her mood was not endorsed. Her affect appeared subdued. There was no clear evidence of delusional thinking. She did appear internally preoccupied and did at times appear to be responding to internal stimuli although she denied any auditory or visual hallucinations. Her attention span appeared poor. She was alert and oriented to person only answering to her name only. Her recent and remote memory appeared poor on interview. Her insight is limited. Her judgment is poor. Her impulse control appeared guarded. Vitals/I&O/Wt Last Vital Signs Temp 97.7 F 11/02/24 06:00 Pulse 82 11/02/24 06:00 Resp 16 11/02/24 06:00 BP 135/85 11/02/24 06:00 Pulse Ox 91 11/02/24 06:00 O2 Del Method Room Air 11/01/24 14:00 Data NPU 10/25/24 07:50 10/26/24 08:12 A&P Assessment and plan (1) Major depressive disorder, recurrent episode with mood-congruent psychotic features: (2) Generalized anxiety disorder: (3) Catatonia: Plan 63-year-old female with a past history of major depressive disorder with psychosis with questionable history of cipriano recently noncompliant with all of her medications for over a month with significant decompensation reported and observed. The patient was agreeable to a change in medications to optimize her ability to maintain mood stability and help with psychosis. #1.? Engage patient in individual milieu and group therapy. #2?? Recommend sober living treatment at the highest level of care to which the patient is willing to commit #3???Continue abilify to 20mg daily, Continue Prozac 30mg daily. Concern over catatonic features,continue ativan to 1.5mg qid #4?? TO-15 minute checks? #5?? Will attempt to gather collateral information Involuntary Hold Information 2 96 Hour Hold: 96 Hour Involuntary Admission: Yes 96 Hour Hold Ending Date: 10/31/24 96 Hour Hold Ending Time: 13:27 Attestations NPU 2 Medical Necessity Statement*: Inpatient hospitalization is medically necessary and deemed to ?be ?the clinically appropriate intervention ?at this time.? We will monitor/initiate medications and make changes as indicated.? The patient?s likely length of stay 5-7 days. Coding Level of Care Code Acute Code for [facility] Diagnoses Major depressive disorder, recurrent episode with mood-congruent psychotic features F33.3 Generalized anxiety disorder F41.1 Catatonia F06.1
[2024-11-02 20:34] VITALS: BP 121/82; PULSE 90; RESP 16; TEMP 36.8; O2SAT 94
[2024-11-02] MEDS: mirtazapine 15 mg Tablet 7.5 MG PO (21:12)
[2024-11-03 06:00] VITALS: BP 111/76; PULSE 87; RESP 16; TEMP 36.5; O2SAT 91
[2024-11-03] MEDS: multivitamin therapeutic Tablet 1 TAB PO (07:48)
[2024-11-03] MEDS: fluoxetine 10 mg Capsule 30 MG PO (07:49)
[2024-11-03] MEDS: ARIPiprazole 10 mg Tablet 20 MG PO (07:49)
[2024-11-03] MEDS: atorvastatin 40 mg Tablet 80 MG PO (07:49)
[2024-11-03] MEDS: LORazepam 1 mg Tablet 1.5 MG PO ×4 (07:49→20:12)
--- NOTE | 2024-11-03 11:31 | P.NPUPN_ITS ---
Subjective NPU 2 Subjective: 63-year-old female with major depressive disorder with psychotic features admitted with increased disorganized behavior and disorganized speech and some catatonic features. Patient had reported feeling better. She continued to perseverate about whether the sheet writer of this note could be her outpatient physician. The patient had continued to remain evasive when asked about whether she felt as if her thoughts were more jumbled. She had continued to isolate herself on the milieu and struggled with interacting with others. She had acknowledged that she had some difficulties with trusting others. She had continued to struggle with completion of activities of daily living. The patient's mother had visited yesterday and had accused staff of allowing another peer to take valuable items from the back because room. Mental Status Exam 2 MSE Comments: The patient is a casually dressed overweight female who appeared her stated age with poor hygiene lying in bed. She was in mild to moderate distress. Her speech was decreased in volume and decreased in rate and productivity with decreased speech latency but less profound than others. There was no evidence of any abnormal involuntary motor movements, tics, or tremors appreciated. Her thought process was more linear today. She denied any suicidal or homicidal ideation. Her mood was not endorsed. Her affect appeared subdued. There was no clear evidence of delusional thinking. She did appear internally preoccupied and did at times appear to be responding to internal stimuli although she denied any auditory or visual hallucinations. Her attention span appeared poor. She was alert and oriented to person, place and time today. Her recent and remote memory appeared poor on interview. Her insight is limited. Her judgment is poor. Her impulse control appeared fair. Vitals/I&O/Wt Last Vital Signs Temp 97.7 F 11/03/24 06:00 Pulse 87 11/03/24 06:00 Resp 16 11/03/24 06:00 BP 111/76 11/03/24 06:00 Pulse Ox 91 11/03/24 06:00 O2 Del Method Room Air 11/01/24 14:00 Weight last 48 hrs Weight 92.805 kg Data NPU 10/25/24 07:50 10/26/24 08:12 A&P Assessment and plan (1) Major depressive disorder, recurrent episode with mood-congruent psychotic features: (2) Generalized anxiety disorder: (3) Catatonia: Plan 63-year-old female with a past history of major depressive disorder with psychosis with questionable history of cipriano recently noncompliant with all of her medications for over a month with significant decompensation reported and observed. The patient was agreeable to a change in medications to optimize her ability to maintain mood stability and help with psychosis. #1.? Engage patient in individual milieu and group therapy. #2?? Recommend sober living treatment at the highest level of care to which the patient is willing to commit #3???Continue abilify to 20mg daily, Continue Prozac 30mg daily. Concern over catatonic features,continue ativan to 1.5mg qid-appears better with increase in ativan. #4?? TO-15 minute checks? #5?? Will attempt to gather collateral information Involuntary Hold Information 2 96 Hour Hold: 96 Hour Involuntary Admission: Yes 96 Hour Hold Ending Date: 10/31/24 96 Hour Hold Ending Time: 13:27 Attestations NPU 2 Medical Necessity Statement*: Inpatient hospitalization is medically necessary and deemed to ?be ?the clinically appropriate intervention ?at this time.? We will monitor/initiate medications and make changes as indicated.? The patient?s likely length of stay 5-7 days. Coding Level of Care Code Acute Code for [facility] Fwd Diagnoses Major depressive disorder, recurrent episode with mood-congruent psychotic features F33.3 Generalized anxiety disorder F41.1 Catatonia F06.1
[2024-11-03 14:00] VITALS: BP 114/76; PULSE 93; RESP 17; TEMP 36.8; O2SAT 95
[2024-11-03] MEDS: mirtazapine 15 mg Tablet 7.5 MG PO (20:12)
[2024-11-03 20:15] VITALS: BP 116/78; PULSE 87; RESP 16; TEMP 36.8; O2SAT 94
[2024-11-04 06:00] VITALS: BP 131/75; PULSE 71; RESP 16; TEMP 36.4; O2SAT 93
[2024-11-04] MEDS: LORazepam 1 mg Tablet 1.5 MG PO ×3 (08:15→20:03)
[2024-11-04] MEDS: ARIPiprazole 10 mg Tablet 20 MG PO (08:16)
[2024-11-04] MEDS: multivitamin therapeutic Tablet 1 TAB PO (08:16)
[2024-11-04] MEDS: atorvastatin 40 mg Tablet 80 MG PO (08:16)
[2024-11-04] MEDS: fluoxetine 10 mg Capsule 30 MG PO (08:16)
--- NOTE | 2024-11-04 11:58 | P.NPUPN_ITS ---
Subjective NPU 2 Subjective: Patient presented today reporting that she is doing okay. She reports that she is fine overall and is wondering how long she will be here. We talked about getting some collateral information specifically related to what baseline looks like and how far from it she is. We discussed continuing the current medication as prescribed and working on follow-up with the social work team. We also wanted to make sure that she was going to be safe at home and able to manage her regimen independently. We discussed the risks, benefits and alternatives of decreasing the Ativan which was being utilized for concern for catatonia and she understood and agreed to proceed as is documented in this note. Mental Status Exam 2 MSE Comments: The patient is a casually dressed overweight female who appeared her stated age with poor hygiene lying in bed. She was in mild to moderate distress. Her speech was decreased in volume and decreased in rate and productivity with decreased speech latency but less profound than others. There was no evidence of any abnormal involuntary motor movements, tics, or tremors appreciated. Her thought process was more linear today. She denied any suicidal or homicidal ideation. Her mood was not endorsed. Her affect appeared subdued. There was no clear evidence of delusional thinking. She did appear internally preoccupied and did at times appear to be responding to internal stimuli although she denied any auditory or visual hallucinations. Her attention span appeared poor. She was alert and oriented to person, place and time today. Her recent and remote memory appeared poor on interview. Her insight is limited. Her judgment is poor. Her impulse control appeared fair. Vitals/I&O/Wt Last Vital Signs Temp 97.6 F 11/04/24 06:00 Pulse 71 11/04/24 06:00 Resp 16 11/04/24 06:00 BP 131/75 11/04/24 06:00 Pulse Ox 93 11/04/24 06:00 O2 Del Method Room Air 11/01/24 14:00 Weight last 48 hrs Weight 92.805 kg Data NPU 10/25/24 07:50 10/26/24 08:12 A&P Assessment and plan (1) Major depressive disorder, recurrent episode with mood-congruent psychotic features: (2) Generalized anxiety disorder: (3) Catatonia: Plan 63-year-old female with a past history of major depressive disorder with psychosis with questionable history of cipriano recently noncompliant with all of her medications for over a month with significant decompensation reported and observed. The patient was agreeable to a change in medications to optimize her ability to maintain mood stability and help with psychosis. 1. Encourage individual, group and milieu therapy. 2.??Recommend sober living treatment at the highest level of care to which the patient is willing to commit 3.??Continue Abilify 20 mg, Prozac 30 mg and decrease the Ativan 1.5 mg p.o. 4 times daily to 1 mg for the first 2 doses of the day and 1.5 mg for the second 2 doses as we begin to decrease the medication which was initiated to treat her catatonia. 4.??Every 15 minute checks for safety? 5.??Will attempt to gather collateral information. 6. Patient on 21-day hold. Involuntary Hold Information 2 96 Hour Hold: 96 Hour Involuntary Admission: Yes 96 Hour Hold Ending Date: 10/31/24 96 Hour Hold Ending Time: 13:27 Attestations NPU 2 Medical Necessity Statement*: Inpatient hospitalization is medically necessary and the clinically appropriate intervention at this time.? We will monitor/initiate medications and make changes as indicated.? The patient?s likely length of stay 3-5 days. Coding Level of Care Code Acute Code for [facility] Fwd Diagnoses Major depressive disorder, recurrent episode with mood-congruent psychotic features F33.3 Generalized anxiety disorder F41.1 Catatonia F06.1
[2024-11-04] MEDS: LORazepam 1 mg Tablet PO (12:28)
[2024-11-04 13:53] VITALS: BP 115/79; PULSE 102; RESP 16; TEMP 36.8; O2SAT 90
[2024-11-04 19:20] VITALS: BP 119/73; PULSE 93; RESP 18; TEMP 36.9; O2SAT 97
[2024-11-04] MEDS: mirtazapine 15 mg Tablet 7.5 MG PO (20:03)
[2024-11-05 06:00] VITALS: BP 135/89; PULSE 75; RESP 18; TEMP 36.6; O2SAT 96
[2024-11-05] MEDS: atorvastatin 40 mg Tablet 80 MG PO (08:19)
[2024-11-05] MEDS: fluoxetine 10 mg Capsule 30 MG PO (08:19)
[2024-11-05] MEDS: LORazepam 1 mg Tablet PO ×4 (08:19→19:57)
[2024-11-05] MEDS: ARIPiprazole 10 mg Tablet 20 MG PO (08:19)
[2024-11-05] MEDS: multivitamin therapeutic Tablet 1 TAB PO (08:19)
--- NOTE | 2024-11-05 11:44 | W.PM.NPUPNS ---
Subjective NPU Subjective: Patient presented today continuing to identify that she is lethargic. She noted that she has not had much appetite or much energy. We discussed that we would decrease the Ativan as quickly as safely possible and try to allow her to regain her energy. She denied any problems with the other medications. She reports she has been sleeping a lot but otherwise denied any major problems or concerns. Mental Status Exam MSE Comments: The patient is a casually dressed overweight female who appeared her stated age with poor hygiene lying in bed. She was in mild to moderate distress. Her speech was decreased in volume and decreased in rate and productivity with decreased speech latency but less profound than others. There was no evidence of any abnormal involuntary motor movements, tics, or tremors appreciated. Her thought process was more linear today. She denied any suicidal or homicidal ideation. Her mood was not endorsed. Her affect appeared subdued. There was no clear evidence of delusional thinking. She did appear internally preoccupied and did at times appear to be responding to internal stimuli although she denied any auditory or visual hallucinations. Her attention span appeared poor. She was alert and oriented to person, place and time today. Her recent and remote memory appeared poor on interview. Her insight is limited. Her judgment is poor. Her impulse control appeared fair. Vitals/I&O/Wt Last Vital Signs Temp 98 F 11/05/24 06:00 Pulse 75 11/05/24 06:00 Resp 18 11/05/24 06:00 BP 135/89 11/05/24 06:00 Pulse Ox 96 11/05/24 06:00 O2 Del Method Room Air 11/05/24 06:00 Data NPU 10/25/24 07:50 10/26/24 08:12 A&P Assessment and plan (1) Major depressive disorder, recurrent episode with mood-congruent psychotic features: (2) Generalized anxiety disorder: (3) Catatonia: Plan 63-year-old female with a past history of major depressive disorder with psychosis with questionable history of cipriano recently noncompliant with all of her medications for over a month with significant decompensation reported and observed. The patient was agreeable to a change in medications to optimize her ability to maintain mood stability and help with psychosis. 1. Encourage individual, group and milieu therapy. 2.??Recommend sober living treatment at the highest level of care to which the patient is willing to commit 3.??Continue Abilify 20 mg, Prozac 30 mg and decrease the Ativan 1.5 mg p.o. 4 times daily to 1 mg for the first 2 doses of the day and 1.5 mg for the second 2 doses as we begin to decrease the medication which was initiated to treat her catatonia. Decrease the Ativan to 1 mg 4 times daily now down a total of 2 mg as of tomorrow. 4.??Every 15 minute checks for safety? 5.??Will attempt to gather collateral information. 6. Patient on 21-day hold. Involuntary Hold Information 96 Hour Hold: 96 Hour Involuntary Admission: Yes 96 Hour Hold Ending Date: 10/31/24 96 Hour Hold Ending Time: 13:27 Attestations NPU Medical Necessity Statement*: Inpatient hospitalization is medically necessary and the clinically appropriate intervention at this time.? We will monitor/initiate medications and make changes as indicated.? The patient?s likely length of stay 3-5 days. Coding Level of Care Code Acute Code for [facility] Fwd Diagnoses Major depressive disorder, recurrent episode with mood-congruent psychotic features F33.3 Generalized anxiety disorder F41.1 Catatonia F06.1
[2024-11-05 14:00] VITALS: BP 111/67; PULSE 88; RESP 17; TEMP 36.7; O2SAT 95
[2024-11-05 19:55] VITALS: BP 110/63; PULSE 84; RESP 16; TEMP 36.8; O2SAT 92
[2024-11-05] MEDS: mirtazapine 15 mg Tablet 7.5 MG PO (19:56)
[2024-11-06 06:30] VITALS: BP 114/76; PULSE 84; RESP 16; O2SAT 91
[2024-11-06] MEDS: multivitamin therapeutic Tablet 1 TAB PO (09:54)
[2024-11-06] MEDS: fluoxetine 10 mg Capsule 30 MG PO (09:54)
[2024-11-06] MEDS: ARIPiprazole 10 mg Tablet 20 MG PO (09:54)
[2024-11-06] MEDS: atorvastatin 40 mg Tablet 80 MG PO (09:54)
[2024-11-06] MEDS: LORazepam 1 mg Tablet PO ×4 (10:04→19:52)
[2024-11-06] MEDS: nicotine 21 mg Patch 1 PATCH TRANSDERMA (12:10)
[2024-11-06 14:00] VITALS: BP 127/69; PULSE 115; RESP 18; TEMP 36.9; O2SAT 94
[2024-11-06] MEDS: mirtazapine 15 mg Tablet 7.5 MG PO (19:52)
[2024-11-06 20:33] VITALS: BP 127/66; PULSE 100; RESP 16; TEMP 37; O2SAT 96
--- NOTE | 2024-11-06 22:55 | P.NPUPN_ITS ---
Subjective NPU 2 Subjective: Patient presented today reporting that things are going better. She identified that she is tolerating the decreasing of Ativan and is being seen outside of her room more with this change. We continue to discuss moving towards discharge as we get the Ativan dosing down. Discussing a goal of hopefully no Ativan at discharge. He is tolerating the other medications and we endorsed a plan to increase the Prozac to 40 mg p.o. daily identifying the risks, benefits and alternatives she understood and agreed to proceed as is documented in this note. She denied any side effects outside of the tiredness or lethargy from Ativan. Mental Status Exam 2 MSE Comments: The patient is a casually dressed overweight female who appeared her stated age with poor hygiene however finally being seen out of bed. She was in mild distress. Her speech was decreased in volume and decreased in rate and productivity with decreased speech latency but less profound than others. There was no evidence of any abnormal involuntary motor movements, tics, or tremors appreciated. Her thought process was more linear and organizedtoday. She denied any suicidal or homicidal ideation. Her mood was reported as better. Her affect appeared less subdued. There was no clear evidence of delusional thinking. She did not appear as internally preoccupied and did not appear to be responding to internal stimuli and she denied any auditory or visual hallucinations. Her attention span appeared poor. She was alert and oriented to person, place and time today. Her recent and remote memory appeared poor on interview. Her insight is limited. Her judgment is poor. Her impulse control appeared fair. Vitals/I&O/Wt Last Vital Signs Temp 98.6 F 11/06/24 20:33 Pulse 100 11/06/24 20:33 Resp 16 11/06/24 20:33 BP 127/66 11/06/24 20:33 Pulse Ox 96 11/06/24 20:33 O2 Del Method Room Air 11/05/24 06:00 Data NPU 10/25/24 07:50 10/26/24 08:12 A&P Assessment and plan (1) Major depressive disorder, recurrent episode with mood-congruent psychotic features: (2) Generalized anxiety disorder: (3) Catatonia: Plan 63-year-old female with a past history of major depressive disorder with psychosis with questionable history of cipriano recently noncompliant with all of her medications for over a month with significant decompensation reported and observed. The patient was agreeable to a change in medications to optimize her ability to maintain mood stability and help with psychosis. 1. Encourage individual, group and milieu therapy. 2.??Recommend sober living treatment at the highest level of care to which the patient is willing to commit 3.??Continue Abilify 20 mg, Prozac 30 mg and decrease the Ativan 1.5 mg p.o. 4 times daily to 1 mg for the first 2 doses of the day and 1.5 mg for the second 2 doses as we begin to decrease the medication which was initiated to treat her catatonia. Decreased the Ativan to 1 mg 4 times daily now down a total of 2 mg. Decrease Ativan to 1 mg p.o. 3 times daily. Increase Prozac to 40 mg p.o. daily as we start considering discharge. 4.??Every 15 minute checks for safety? 5.??Will attempt to gather collateral information. 6. Patient on 21-day hold. Involuntary Hold Information 2 96 Hour Hold: 96 Hour Involuntary Admission: Yes 96 Hour Hold Ending Date: 10/31/24 96 Hour Hold Ending Time: 13:27 Attestations NPU 2 Medical Necessity Statement*: Inpatient hospitalization is medically necessary and the clinically appropriate intervention at this time.? We will monitor/initiate medications and make changes as indicated.? The patient?s likely length of stay 2-4 days. Coding Level of Care Code Acute Code for [facility] Fwd Diagnoses Major depressive disorder, recurrent episode with mood-congruent psychotic features F33.3 Generalized anxiety disorder F41.1 Catatonia F06.1
[2024-11-07] MEDS: acetaminophen 325 mg Tablet 650 MG PO (00:48)
--- NOTE | 2024-11-07 00:52 | PC.NURSE ---
PT CONTINUES TO BE TEARFUL, ANXIOUS, MAKING STATEMENTS I CAN'T SLEEP AND THIS IS HOW I GET, I'M GOING TO GET VIOLENT I HAVE TO SLEEP NOW. GIVE ME SOMETHING NOW. PT WAS VERBALLY REDIRECTED AND THIS RN LISTENED TO PT INTENTLY. PT WAS GIVEN ZYDIS 5 MG ORDERED FOR INCREASED ANXIETY. PT ROOM WAS CHANGED TO [facility] DUE TO PT COMPLAINING ABOUT HER ROOM MATE IN 128 SNORING SO LOUD I CAN'T SLEEP. SUPPORT VOICED.
[2024-11-07 06:15] VITALS: BP 123/84; PULSE 88; RESP 16; TEMP 36.4; O2SAT 94
[2024-11-07] MEDS: multivitamin therapeutic Tablet 1 TAB PO (09:50)
[2024-11-07] MEDS: atorvastatin 40 mg Tablet 80 MG PO (09:50)
[2024-11-07] MEDS: LORazepam 1 mg Tablet PO ×3 (09:50→19:59)
[2024-11-07] MEDS: fluoxetine 10 mg Capsule 30 MG PO (09:50)
[2024-11-07] MEDS: ARIPiprazole 10 mg Tablet 20 MG PO (09:50)
[2024-11-07 14:00] VITALS: BP 122/79; PULSE 99; RESP 16; TEMP 36.8; O2SAT 94
--- NOTE | 2024-11-07 19:35 | W.PM.NPUPNS ---
Subjective NPU Subjective: Patient presented today reporting that things are seeming to go better. She is out of bed more and being more interactive per staff reports and direct observation. She started inquiring about when discharge might be possible. We discussed the risks, benefits and alternatives of continuing to decrease her Ativan likely moving it to 1 mg p.o. twice daily as well as increasing her Prozac to 40 mg p.o. daily and she understood and agreed to proceed as is documented in this note. She denied any side effects or medications reporting that she is starting to clear the fall from the high Ativan dosing that was 2 address possible catatonia. We discussed her having a LUCIANA evaluation to ensure that she is appropriate for independent living. We discussed the likelihood of discharge in the coming days. Mental Status Exam MSE Comments: The patient is a casually dressed overweight female who appeared her stated age with limited hygiene however being seen out of bed. She was in mild distress. Her speech was decreased in volume and decreased in rate and productivity with decreased speech latency but less profound than others. There was no evidence of any abnormal involuntary motor movements, tics, or tremors appreciated. Her thought process was more linear and organized today. She denied any suicidal or homicidal ideation. Her mood was reported as better. Her affect appeared less subdued. There was no clear evidence of delusional thinking. She did not appear as internally preoccupied and did not appear to be responding to internal stimuli and she denied any auditory or visual hallucinations. Her attention span appeared poor. She was alert and oriented to person, place and time today. Her recent and remote memory appeared poor on interview. Her insight is limited. Her judgment is poor. Her impulse control appeared fair. Vitals/I&O/Wt Last Vital Signs Temp 98.3 F 11/07/24 14:00 Pulse 99 11/07/24 14:00 Resp 16 11/07/24 14:00 BP 122/79 11/07/24 14:00 Pulse Ox 94 11/07/24 14:00 O2 Del Method Room Air 11/07/24 14:00 Data NPU 10/25/24 07:50 10/26/24 08:12 A&P Assessment and plan (1) Major depressive disorder, recurrent episode with mood-congruent psychotic features: (2) Generalized anxiety disorder: (3) Catatonia: Plan 63-year-old female with a past history of major depressive disorder with psychosis with questionable history of cipriano recently noncompliant with all of her medications for over a month with significant decompensation reported and observed. The patient was agreeable to a change in medications to optimize her ability to maintain mood stability and help with psychosis. 1. Encourage individual, group and milieu therapy. 2.??Recommend sober living treatment at the highest level of care to which the patient is willing to commit 3.??Continue Abilify 20 mg, Prozac 30 mg and decrease the Ativan 1.5 mg p.o. 4 times daily to 1 mg for the first 2 doses of the day and 1.5 mg for the second 2 doses as we begin to decrease the medication which was initiated to treat her catatonia. Decreased the Ativan to 1 mg 4 times daily now down a total of 2 mg. Decrease Ativan to 1 mg p.o. 3 times daily. Increased Prozac to 40 mg p.o. daily as we start considering discharge. Decrease Ativan to 1 mg p.o. twice daily. 4.??Every 15 minute checks for safety? 5.??Will attempt to gather collateral information. 6. Patient on 21-day hold. Involuntary Hold Information 96 Hour Hold: 96 Hour Involuntary Admission: Yes 96 Hour Hold Ending Date: 10/31/24 96 Hour Hold Ending Time: 13:27 Attestations NPU Medical Necessity Statement*: Inpatient hospitalization is medically necessary and the clinically appropriate intervention at this time.? We will monitor/initiate medications and make changes as indicated.? The patient?s likely length of stay 1-3 days. Coding Level of Care Code Acute Code for [facility] Fwd Diagnoses Major depressive disorder, recurrent episode with mood-congruent psychotic features F33.3 Generalized anxiety disorder F41.1 Catatonia F06.1
[2024-11-07] MEDS: mirtazapine 15 mg Tablet 7.5 MG PO (19:59)
[2024-11-07] MEDS: trazodone 50 mg Tablet PO (19:59)
[2024-11-07] MEDS: hyDROXYzine 25 mg Capsule 50 MG PO (19:59)
[2024-11-07 20:41] VITALS: BP 132/75; PULSE 82; RESP 16; TEMP 36.9; O2SAT 94
[2024-11-08 06:00] VITALS: BP 138/89; PULSE 84; RESP 16; O2SAT 93
[2024-11-08] MEDS: atorvastatin 40 mg Tablet 80 MG PO (08:15)
[2024-11-08] MEDS: ARIPiprazole 10 mg Tablet 20 MG PO (08:15)
[2024-11-08] MEDS: fluoxetine 20 mg Capsule 40 MG PO (08:15)
[2024-11-08] MEDS: LORazepam 1 mg Tablet PO ×2 (08:15→18:06)
[2024-11-08] MEDS: multivitamin therapeutic Tablet 1 TAB PO (08:15)
--- NOTE | 2024-11-08 11:30 | W.PM.NPUPNS ---
Subjective NPU Subjective: Patient presented today reporting that she is feeling better. We discussed her having a good test result from her LUCIANA. We discussed the likelihood of discharge tomorrow with a taper of her Ativan and the discussion of her diagnoses. She denied any side effects of the medication. Mental Status Exam MSE Comments: The patient is a casually dressed overweight female who appeared her stated age with limited hygiene however being seen out of bed. She was in mild distress. Her speech was decreased in volume and decreased in rate and productivity with decreased speech latency but less profound than others. There was no evidence of any abnormal involuntary motor movements, tics, or tremors appreciated. Her thought process was more linear and organized today. She denied any suicidal or homicidal ideation. Her mood was reported as better. Her affect appeared less subdued. There was no clear evidence of delusional thinking. She did not appear as internally preoccupied and did not appear to be responding to internal stimuli and she denied any auditory or visual hallucinations. Her attention span appeared poor. She was alert and oriented to person, place and time today. Her recent and remote memory appeared poor on interview. Her insight is limited. Her judgment is poor. Her impulse control appeared fair. Vitals/I&O/Wt Last Vital Signs Temp 98.4 F 11/07/24 20:41 Pulse 84 11/08/24 06:00 Resp 16 11/08/24 06:00 BP 138/89 11/08/24 06:00 Pulse Ox 93 11/08/24 06:00 O2 Del Method Room Air 11/08/24 06:00 Data NPU 10/25/24 07:50 10/26/24 08:12 A&P Assessment and plan (1) Major depressive disorder, recurrent episode with mood-congruent psychotic features: (2) Generalized anxiety disorder: (3) Catatonia: Plan 63-year-old female with a past history of major depressive disorder with psychosis with questionable history of cipriano recently noncompliant with all of her medications for over a month with significant decompensation reported and observed. The patient was agreeable to a change in medications to optimize her ability to maintain mood stability and help with psychosis. 1. Encourage individual, group and milieu therapy. 2.??Recommend sober living treatment at the highest level of care to which the patient is willing to commit 3.??Continue Abilify 20 mg, Prozac 30 mg and decrease the Ativan 1.5 mg p.o. 4 times daily to 1 mg for the first 2 doses of the day and 1.5 mg for the second 2 doses as we begin to decrease the medication which was initiated to treat her catatonia. Decreased the Ativan to 1 mg 4 times daily now down a total of 2 mg. Decrease Ativan to 1 mg p.o. 3 times daily. Increased Prozac to 40 mg p.o. daily as we start considering discharge. Decrease Ativan to 1 mg p.o. twice daily. Will likely discharge tomorrow with a taper of her Ativan. 4.??Every 15 minute checks for safety? 5.??Will attempt to gather collateral information. 6. Patient on 21-day hold. Involuntary Hold Information 96 Hour Hold: 96 Hour Involuntary Admission: Yes 96 Hour Hold Ending Date: 10/31/24 96 Hour Hold Ending Time: 13:27 Attestations NPU Medical Necessity Statement*: Inpatient hospitalization is medically necessary and the clinically appropriate intervention at this time.? We will monitor/initiate medications and make changes as indicated.? The patient?s likely length of stay 1-2 days. Coding Level of Care Code Acute Code for [facility] Fwd Diagnoses Major depressive disorder, recurrent episode with mood-congruent psychotic features F33.3 Generalized anxiety disorder F41.1 Catatonia F06.1
--- NOTE | 2024-11-08 12:48 | DCPLANNER ---
IMM was printed and given to pt and rights explained. Copy was placed in pts file.
[2024-11-08 14:00] VITALS: BP 114/77; PULSE 93; RESP 16; TEMP 36.3; O2SAT 95
[2024-11-08] MEDS: mirtazapine 15 mg Tablet 7.5 MG PO (20:33)
[2024-11-08 21:03] VITALS: BP 116/76; PULSE 81; RESP 16; TEMP 36.8; O2SAT 93
[2024-11-09 06:00] VITALS: BP 108/71; PULSE 82; RESP 17; TEMP 36.2; O2SAT 90
[2024-11-09] MEDS: fluoxetine 20 mg Capsule 40 MG PO (09:19)
[2024-11-09] MEDS: ARIPiprazole 10 mg Tablet 20 MG PO (09:19)
[2024-11-09] MEDS: atorvastatin 40 mg Tablet 80 MG PO (09:19)
[2024-11-09] MEDS: LORazepam 1 mg Tablet PO (09:19)
[2024-11-09] MEDS: multivitamin therapeutic Tablet 1 TAB PO (09:19)
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
[2024-11-09 11:20] VITALS: BP 133/75; PULSE 93; RESP 17; TEMP 37.1; O2SAT 92
== END 2024-11-09 12:35 | disposition home or self-care (01) | DRG 885 ==
LOC: ER 12:48 → NP 13:21
PROVIDERS: Admitting Provider Psychiatry & Neurology Psychiatry; Emergency Provider Emergency Medicine; PCP Family Medicine; Visit Provider Psychiatry & Neurology Psychiatry
DX: F20.2 Catatonic schizophrenia (principal); F41.1 Generalized anxiety disorder; T50.996A Underdosing of other drugs, medicaments and biological substances, initial encounter; Z91.128 Patient's intentional underdosing of medication regimen for other reason; E78.5 Hyperlipidemia, unspecified; E55.9 Vitamin D deficiency, unspecified; M19.90 Unspecified osteoarthritis, unspecified site; Z62.810 Personal history of physical and sexual abuse in childhood; F17.200 Nicotine dependence, unspecified, uncomplicated; E66.3 Overweight; Z68.35 Body mass index [BMI] 35.0-35.9, adult
CPT/HCPCS: 12345; 36415; 36416; 36600; 70450; 70496; 70498; 71045; 80051; 80053; 80306; 80307; 81001; 82330; 82805; 82962; 85025; 85610; 85730; 93005; 96372; 97150; 97165; 97167; 99285; J3486; Q0162

== ENCOUNTER → 2025-01-07 10:34 | Outpatient (BNVA) | payer MEDICARE, MEDICAID, SELFPAY | PROVIDERS: PCP Family Medicine; Visit Provider Internal Medicine Rheumatology | DX: M05.9 Rheumatoid arthritis with rheumatoid factor, unspecified (principal); Z79.899 Other long term (current) drug therapy; R68.2 Dry mouth, unspecified; Z71.85 Encounter for immunization safety counseling | CPT/HCPCS: 80076; 82565; 85025; 85651; 86140; 99214 ==

== ENCOUNTER 2025-02-23 17:32 | Emergency (ER) | payer MEDICARE, MEDICAID, SELFPAY ==
[2025-02-23] VITALS (9 sets, daily range): BP systolic 97–144; BP diastolic 66–89; PULSE 82–93; RESP 16; TEMP 36.7; O2SAT 94–96; BMI 27.4
--- NOTE | 2025-02-23 17:44 | XRR_ITS ---
PROCEDURE INFORMATION: Exam: XR Chest Exam date and time: 02/23/2025 5:47 PM Age: 64 years old Clinical indication: Shortness of breath; SOB TECHNIQUE: Imaging protocol: Radiologic exam of the chest. Views: 1 view. COMPARISON: CR XR chest 1V portable [id number] 10/25/2024 8:07 AM FINDINGS: Lungs: Unremarkable. No consolidation. Pleural spaces: Unremarkable. No pleural effusion. No pneumothorax. Heart/Mediastinum: Unremarkable. No cardiomegaly. Bones/joints: Unremarkable. XR/XR chest 1V portable [id number] IMPRESSION: No acute findings.
[2025-02-23 18:12] LABS: Bacteria Urine None Seen /hpf; Hyaline Casts Urine 4.95 /lpf; RBC Urine 0-2 /hpf (0-2); Squamous Epithelial Cell Urine 0-5 /hpf (0-5)
[2025-02-23 18:20] LABS: Amphetamines Screen Urine Negative (Negative); Barbiturates Screen Urine Negative (Negative); Benzodiazepines Screen Urine Negative (Negative); Cocaine Screen Urine Negative (Negative); Opiate Screen Urine Negative (Negative); PCP Screen Urine Negative (Negative); THC Screen Urine Negative (Negative)
[2025-02-23 18:22] LABS: Glucose Urine UA Norm (Normal); Ketones Urine 2+ (Negative); Protein Urine Trace (Negative); Specific Gravity, Urine 1.025 (1.005-1.030); Urine Appearance Cloudy (CLEAR); Urine Color Dark Yellow (Yellow); pH Urine 5 (5-7)
[2025-02-23 18:23] LABS: Add Urine Microscopic? YES; Bilirubin Urine 1+ (Negative); Blood Urine Neg (Negative); Leukocyte Esterase Urine Trace (Negative); Mucus Urine 1+ /hpf; Nitrate Urine Negative (Negative); Urobilinogen Urine 1 mg/dL (Negative)
--- NOTE | 2025-02-23 18:27 | CTR_ITS ---
PROCEDURE INFORMATION: Exam: CT Head Without Contrast Exam date and time: 02/23/2025 6:38 PM Age: 64 years old Clinical indication: Altered mental status/memory loss; EMS arrival for AMS. Patient non verbal with facial twitching. TECHNIQUE: Imaging protocol: Computed tomography of the head without contrast. Radiation optimization: All CT scans at this facility use at least one of these dose optimization techniques: automated exposure control; mA and/or kV adjustment per patient size (includes targeted exams where dose is matched to clinical indication); or iterative reconstruction. COMPARISON: CT angio headneck* [id number] 10/25/2024 8:28 AM RADIATION DOSE METRICS: Total DLP (mGy-cm): 1108.63 FINDINGS: Brain: Periventricular white matter changes likely related to chronic ischemic small vessel disease. No intracranial mass, hemorrhage or recent infarct. Old bilateral basal ganglia lacunar infarcts. Brain atrophy present. Cerebral ventricles: No ventriculomegaly. Paranasal sinuses: Visualized sinuses are unremarkable. No fluid levels. Mastoid air cells: Visualized mastoid air cells are well aerated. Bones: Unremarkable. No acute fracture. Soft tissues: Unremarkable. CT/CT head wo con* [id number] IMPRESSION: No acute intracranial abnormality.
[2025-02-23 18:44] LABS: Basophils % 0.4 %; Eosinophils % 0.3 %; Hematocrit 41.6 % (36-47); Lymphocytes # 0.9 10^3/uL (0.8-4.8); Lymphocytes % 11.3 %; Mean Corpuscular HGB Conc 32.2 g/dL (30-55); Mean Corpuscular Hemoglobin 30.8 pg (27-33); Mean Corpuscular Volume 95.6 fl (85-98); Mean Platelet Volume 9.2 fL (7.4-10.4); Monocytes # 0.5 10^3/uL (0.2-0.9); Monocytes % 6.8 %; Neutrophils # 6.18 10^3/uL (1.8-7.7); Neutrophils % 80.8 %; Nucleated Red Blood Cells % 0 %; Platelet Count 456 10^3/cmm (157-399); Red Blood Count 4.35 10^6/uL (3.85-5.65); Red Cell Distribution Width 13.3 % (12.1-15.1); White Blood Count 7.64 10^3/uL (3.29-11.43)
[2025-02-23] MEDS: LORazepam 1 MG/0.5 ML injection IVP (18:50)
[2025-02-23] MEDS: haloperidol inj 5 mg/mL INJ 1 mL 3 MG IVP (18:51)
[2025-02-23 19:14] LABS: Alanine Aminotransferase 14 U/L (0-33); Albumin Level 3.1 g/dL (3.5-5.2); Alkaline Phosphatase 102 U/L (35-105); Anion Gap 16.7 (5-19); Aspartate Amino Transferase 18 U/L (0-32); Blood Urea Nitrogen 6 mg/dL (8-23); Carbon Dioxide 28 mmol/L (22-29); Chloride 96 mmol/L (98-107); Creatinine Clr Calc Pharmacy 94.9226; Globulin 3.5 g/dL (1.3-4.6); Glomerular Filtration Rate 101.3 mL/min (90-130); Glucose 98 mg/dL (65-115); Magnesium 1.9 mg/dL (1.7-2.3); Osmolality Calculated 284 mOsm/kg (285-295); Sodium 138 mmol/L (136-145); Thyroid Stimulating Hormone 1.51 uIU/mL (0.27-4.20); Total Bilirubin 0.3 mg/dL (0.15-1.2); Total Protein 6.6 g/dL (6.6-8.7)
[2025-02-23 19:16] LABS: Potassium 2.7 mmol/L (3.5-5.1)
[2025-02-23 19:18] LABS: Alcohol Level < 10 mg/dL (0-10)
--- NOTE | 2025-02-23 19:24 | W.ED.AMS ---
HPI - Altered Mental Status General: Chief Complaint: Altered Mental Status Stated Complaint: ams Time Seen by Provider: 02/23/25 18:06 History of Present Illness: 64-year-old female with a history of anxiety and depression according to her family. The patient's mother notes that she would talk to her at 2 PM and at 4 PM earlier in the day. She has been more depressed, and had likely stopped her medications in January, as she ran out of them. She has been less interactive, less talkative. Later in the evening, she would not talk at all. She is very anxious. She only blinks, shakes her head. She does follow commands. Family relates that this has happened in the past, when she has been off of her medication. No pain. No fever. No vomiting Related Data Home Medications ?Medication ?Instructions ?Recorded ?Confirmed acetaminophen 500 mg tablet 500 mg PO Q6H PRN Pain 12/13/19 01/07/25 (Tylenol Extra Strength) aspirin 81 mg tablet,delayed 81 mg PO DAILY 06/15/21 01/07/25 release (Adult Aspirin Regimen) rosuvastatin 20 mg tablet 20 mg PO DAILY 08/29/24 01/07/25 Previous Rx's ?Medication ?Instructions ?Recorded ondansetron HCl 4 mg tablet 4 mg PO Q8H nausea #30 tabs 06/19/24 propranolol 120 mg capsule,24 120 mg PO DAILY #90 caps 08/29/24 hr,extended release diclofenac sodium 1 % topical gel 4 g topical QID #200 grams 01/07/25 tofacitinib 5 mg tablet (Xeljanz) 5 mg PO BID #60 tabs 01/07/25 prednisone 20 mg tablet See Rx Instructions PO .COMPLEX 01/09/25 PRN joint pain flare #30 tabs aripiprazole 30 mg tablet 30 mg PO DAILY #30 tabs 02/23/25 fluoxetine 40 mg capsule 40 mg PO DAILY 30 days #30 caps 02/23/25 lorazepam 0.5 mg tablet 0.5 mg PO BID PRN Anxiety 30 days 02/23/25 #60 tabs mirtazapine 15 mg tablet 7.5 mg (1/2 x 15 mg) PO BEDTIME 30 02/23/25 days #15 tabs Allergies Allergy/AdvReac Type Severity Reaction Status Date / Time lithium Allergy Intermediate ADR-Halluci Verified 01/07/25 10:59 nating tetracycline Allergy Intermediate ALGY-Rash Verified 01/07/25 10:59 [facility] PFS: Medical History Immunization counseling Dry mouth Tremor Hip pain Psychiatric care Generalized anxiety disorder Major depressive disorder, recurrent episode with mood-congruent psychotic features Social History Smoking and tobacco/nicotine status: current every day tobacco/nicotine user Alcohol intake: current Alcohol intake frequency: holidays/special occasions only Physical Exam Const: COMMON NORMALS: no acute distress GENERAL APPEARANCE: cooperative; not ill appearing and not frail appearing HENMT: COMMON NORMALS: normocephalic, atraumatic and Normal external nose present HEAD & SCALP: normocephalic and atraumatic FACE & SINUS: normal facial exam and face symmetric NOSE: Normal external nose present Eye: COMMON NORMALS: Equal, round and reactive pupils present and EOMs intact bilaterally PUPIL: Yes Equal, round and reactive pupils present Neck/C-Spine: GENERAL: Yes trachea midline Chest: CHEST: Yes Symmetrical chest wall rise Resp: COMMON NORMALS: normal respiratory effort, No retractions, No use of accessory muscles and clear to auscultation bilaterally AUSCULTATION: clear to auscultation bilaterally Cardio: COMMON NORMALS: regular rate and regular rhythm RATE: regular rate RHYTHM: regular rhythm GI: COMMON NORMALS: Normal to inspection, nondistended, normoactive bowel sounds present Extremity: COMMON NORMALS: no pedal edema Psych: APPEARANCE: Yes grossly normal ATTITUDE: Yes Withdrawn affect present ACTIVITY/MOTOR BEHAVIOR: Yes appropriate eye contact SPEECH: Yes excessive MOOD & AFFECT: Yes depressed mood and Yes anxious Skin: COMMON NORMALS: no rashes or lesions noted GENERAL SKIN EXAM: no rashes or lesions noted Course Vital Signs: Vital signs: Vital Signs Temperature 98.1 F 02/23/25 17:42 Pulse Rate 89 02/23/25 23:36 Respiratory Rate 16 02/23/25 17:42 Blood Pressure 144/89 02/23/25 23:36 Pulse Oximetry 94 02/23/25 23:36 Oxygen Delivery Me thod Room Air 02/23/25 22:30 MDM - Altered Mental Status Medical Decision Making Patient does not appear intoxicated. She does however appear quite anxious. She is nonverbal. She is given small dose of IV Haldol and Ativan, and is now talking to some degree. She is more interactive. She is requiring some oxygen after this transiently. Her potassium was 2.7. Platelet count is 456. Other laboratory is not remarkable. Urine drug screen is negative. Chest x-ray and head CT are negative as well. She is not suicidal or homicidal. We have no neuropsychiatry beds available currently. Family wishes to take her home, as she is somewhat improved. Her medications are re-prescribed for her, as she is evidently out of them. She'll return for any worsening symptoms. Outpatient follow up. Lab Data 02/23/25 18:31 02/23/25 18: Radiology Impressions Chest X-Ray 02/23/25 17:44 IMPRESSION: No acute findings. Head CT 02/23/25 18: IMPRESSION: No acute intracranial abnormality. Laboratory Results WBC 7.64 10^3/uL (3.29-11.43) 02/23/25: RBC 4.35 10^6/uL (3.85-5.65) 02/23/25 18: Hgb 13.40 g/dL (11.27-16.99) 02/23/25 18: Hct 41.6 % (36-47) 02/23/25 18: MCV 95.6 fl (85-98) 02/23/25 18: MCH 30.8 pg (27-33) 02/23/25 18: MCHC 32.2 g/dL (30-55) 02/23/25 18: RDW 13.3 % (12.1-15.1) 02/23/25 18: Plt Count 456 10^3/cmm (157-399) H 02/23/25 18: MPV 9.2 fL (7.4-10.4) 02/23/25 18: Neut % (Auto) 80.8 % 02/23/25 18: Lymph % (Auto) 11.3 % 02/23/25 18: [place] % (Auto) 6.8 % 02/23/25 18: Eos % (Auto) 0.3 % 02/23/25 18: Baso % (Auto) 0.4 % 02/23/25: Neut # (Auto) 6.18 10^3/uL (1.8-7.7) 02/23/25 18: Lymph # (Auto) 0.9 10^3/uL (0.8-4.8) 02/23/25 18: [place] # (Auto) 0.5 10^3/uL (0.2-0.9) 02/23/25 18: Eos # (Auto) 0.0 10^3/uL (0.0-0.8) 02/23/25 18: Baso # (Auto) 0.0 10^3/uL (0.0-0.1) 02/23/25 18: Nucleated RBC % (auto) 0 % 02/23/25 Nucleated RBCs # 0.0 /100WBC 02/23/25 18: Sodium 138 mmol/L (136-145) 02/23/25 18: Potassium 2.7 mmol/L (3.5-5.1) L* 02/23/25: Chloride 96 mmol/L (98-107) L 02/23/25 18: Carbon Dioxide 28 mmol/L (22-29) 02/23/25 18: Anion Gap 16.7 (5-19) 02/23/25 18: BUN 6 mg/dL (8-23) L 02/23/25: Creatinine 0.6 mg/dL (0.5-0.9) 02/23/25 18: GFR Calculation 101.3 mL/min (90-130) 02/23/25: Glucose 98 mg/dL (65-115) 02/23/25 18: Calculated Osmolality 284 mOsm/kg (285-295) L 02/23/25: Calcium 9.0 mg/dL (8.5-10.5) 02/23/25: Magnesium 1.9 mg/dL (1.7-2.3) 02/23/25 18: Total Bilirubin 0.3 mg/dL (0.15-1.2) 02/23/25 18: AST 18 U/L (0-32) 02/23/25 18: ALT 14 U/L (0-33) 02/23/25 18: Alkaline Phosphatase 102 U/L (35-105) 02/23/25 18: Total Protein 6.6 g/dL (6.6-8.7) 02/23/25 18: Albumin 3.1 g/dL (3.5-5.2) L 02/23/25 18: Globulin 3.5 g/dL (1.3-4.6) 02/23/25 18: TSH 1.51 uIU/mL (0.27-4.20) 02/23/25: Urine Color Dark yellow (Yellow) A 02/23/25 18:00 Urine Appearance Cloudy (CLEAR) A 02/23/25 18: Urine pH 5 (5-7) 02/23/25 18: Ur Specific [place] 1.025 (1.005-1.030) 02/23/25 18:00 Urine Protein Trace (Negative) H 02/23/25 18:00 Urine Glucose (UA) Norm (Normal) 02/23/25 18:00 Urine Ketones 2+ (Negative) H 02/23/25 18:00 Urine Blood Neg (Negative) 02/23/25 18: Urine Nitrate Negative (Negative) 02/23/25 18:00 Urine Bilirubin 1+ (Negative) H 02/23/25 18:00 Urine Urobilinogen 1 mg/dL (Negative) H 02/23/25 18:00 Ur Leukocyte Esterase Trace (Negative) A 02/23/25 18:00 Urine RBC 0-2 /hpf (0-2) 02/23/25 18:00 Urine WBC 5-10 /hpf (0-5) H 02/23/25 18:00 Ur Squamous Epith Cells 0-5 /hpf (0-5) 02/23/25 18:00 Amorphous Sediment Not Reportable 02/23/25 18:00 Urine Bacteria None seen /hpf (NONE) 02/23/25 18:00 Hyaline Casts 4.95 /lpf 02/23/25 18:00 Urine Mucus 1+ /hpf 02/23/25 18:00 Urine Opiates Screen Negative ng/mL (Negative) 02/23/25 18:00 Ur Barbiturates Screen Negative ng/mL (Negative) 02/23/25 18:00 Ur Phencyclidine Scrn Negative ng/mL (Negative) 02/23/25 18:00 Ur Amphetamines Screen Negative ng/mL (Negative) 02/23/25 18:00 U Benzodiazepines Scrn Negative ng/mL (Negative) 02/23/25 18:00 Urine Cocaine Screen Negative ng/mL (Negative) 02/23/25 18:00 U Marijuana (THC) Screen Negative ng/mL (Negative) 02/23/25 18:00 Ethyl Alcohol < 10 mg/dL (0-10) 02/23/25 18:31 All radiology interpretation(s) finalized by discharge Discharge Plan Discharge Patient Disposition: Home Clinical Impression: Major depressive disorder, recurrent episode with mood-congruent psychotic features Condition: Stable Prescriptions: New aripiprazole 30 mg tablet 30 mg PO DAILY Qty: 30 0RF Continued fluoxetine 40 mg capsule 40 mg PO DAILY 30 Days Qty: 30 1RF lorazepam 0.5 mg tablet 0.5 mg PO BID PRN (Reason: Anxiety) 30 Days Qty: 60 1RF mirtazapine 15 mg Tablet 7.5 mg PO BEDTIME 30 Days Qty: 15 1RF No Action acetaminophen [Tylenol Extra Strength] 500 mg tablet 500 mg PO Q6H PRN (Reason: Pain) aspirin [Adult Aspirin Regimen] 81 mg tablet,delayed release (DR/EC) 81 mg PO DAILY diclofenac sodium 1 % gel 4 g topical QID Qty: 200 1RF Rx Instructions: apply to single knee, ankle, foot; for foot includes sole/toes/top of foot Xeljanz 5 mg tablet 5 mg PO BID Qty: 60 5RF rosuvastatin 20 mg tablet 20 mg PO DAILY propranolol 120 mg capsule,extended release 24hr 120 mg PO DAILY Qty: 90 3RF ondansetron HCl 4 mg tablet 4 mg PO Q8H Qty: 30 1RF prednisone 20 mg tablet See Rx Instructions PO .COMPLEX PRN (Reason: joint pain flare) Qty: 30 1RF Rx Instructions: take 1-2 daily for 3-7 days PRN joint pain flare PO PRN; Discharge Orders: Discharge ED (Routine); Ordered 02/23/25 Ordered By: Reymundo Otero Referrals: Beatriz Starr MD [Primary Care Provider, Family Practice] Patient Instructions: Depression (ED), Altered Mental Status (ED), Psychotic Disorder (ED), Opioid Safety, Pain Management Activity Restrictions/Additional Instructions: Case management will call you to discuss a follow-up appointment with your doctor. That will happen this week. Medications as directed. Return for any problems. Print Language: Marshallese Coding Level of Care Code ED Chlorinator for Lino Mckay
--- NOTE | 2025-02-23 19:29 | ECG_ITS ---
[facility] xaitment Test Date: 2025-02-23 Pat Name: Stefanie Meng Department: Room: Gender: Female Topographic Computator: : 1960 Requested By: Reymundo Burnett Order Number: [id number] Jessica MD: Bebeto Cuellar M.D. Measurements Intervals [place] Rate: 82 P: 67 IN: 151 QRS: -72 QRSD: 124 T: 64 QT: 416 QTc: 489 Interpretive Statements SINUS RHYTHM RIGHT BUNDLE BRANCH BLOCK [120+ ms QRS DURATION, UPRIGHT V1, 40+ ms S IN I/aVL/V4/V5/V6] LEFT ANTERIOR FASCICULAR BLOCK [QRS AXIS <= -45, QR IN I, RS IN II] POSSIBLE SEPTAL MYOCARDIAL INFARCTION , PROBABLY OLD [30 ms Q WAVE IN V1/V2] Compared to ECG 10/25/2024 08:01:20 No significant changes Electronically Signed On 02-25-2025 06:33:49 CDT by Bebeto Cuellar M.D. [email or web address]
[2025-02-23] MEDS: potassium chloride oral liq 20 mEq/15 mL UDC 40 MEQ PO (20:54)
[2025-02-23] MEDS: lidocaine 1% 5 ML in potassium chloride premix 100 ML 52.5 ML IV (20:55)
--- NOTE | 2025-02-23 22:49 | PC.NURSE ---
pt was up and ambulated to restroom without assistance and then back to room.
== END 2025-02-23 23:38 | disposition home or self-care (01) ==
PROVIDERS: General Practice; Emergency Provider Emergency Medicine; PCP Family Medicine
DX: F33.3 Major depressive disorder, recurrent, severe with psychotic symptoms (principal); F41.1 Generalized anxiety disorder; F17.200 Nicotine dependence, unspecified, uncomplicated; Z79.899 Other long term (current) drug therapy; Z79.82 Long term (current) use of aspirin; Z88.8 Allergy status to other drugs, medicaments and biological substances
CPT/HCPCS: 70450; 71045; 80053; 80306; 80307; 81001; 83735; 84443; 85025; 93005; 96365; 96366; 96375; 99284; J1630; J2060; J3480; J9999

== ENCOUNTER → 2025-03-11 09:57 | Outpatient (BNVA) | payer MEDICARE, MEDICAID, SELFPAY | PROVIDERS: PCP Family Medicine; Visit Provider Nurse Practitioner Family | DX: L65.0 Telogen effluvium (principal); D22.39 Melanocytic nevi of other parts of face; L57.8 Other skin changes due to chronic exposure to nonionizing radiation | CPT/HCPCS: 99203 ==